=== PATIENT | male | born 1965 | race Caucasian/White ===

== ENCOUNTER 2020-03-09 14:35 | Inpatient (IN) | payer OTHER, SELFPAY ==
[2020-03-09] VITALS (27 sets, daily range): BP systolic 135–179; BP diastolic 82–111; PULSE 45–94; RESP 10–23; TEMP 36.8; O2SAT 93–99; BMI 23.0
--- NOTE | 2020-03-09 14:45 | XRR_ITS ---
PROCEDURE INFORMATION: Exam: XR Chest, 1 View Exam date and time: 03/09/2020 2:47 PM Age: 54 years old Clinical indication: Chest pain TECHNIQUE: Imaging protocol: XR of the chest Views: 1 view. COMPARISON: No relevant prior studies available. FINDINGS: Lungs: There are pulmonary parenchymal calcifications consistent with remote granulomatous organism exposure. Normal variant azygos lobe. Pleural space: Unremarkable. No pleural effusion. No pneumothorax. Heart/Mediastinum: The heart is upper limits of normal in size. Bones/joints: Unremarkable. XR/XR chest 1V portable [id number] IMPRESSION: No acute findings.
--- NOTE | 2020-03-09 14:45 | ECG_ITS ---
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 Measurements Intervals [place] Rate: 60 P: 52 AK: 166 QRS: 68 QRSD: 93 T: 54 QT: 389 QTc: 389 Interpretive Statements SINUS RHYTHM No previous ECG available for comparison Electronically Signed On 03-10-2020 15:10:53 CDT by Wilmer Aly M.D. [id number] f
[2020-03-09 14:56] LABS: Basophils # 0.1 10^3/uL (0.0-0.1); Basophils % 1.1 %; Eosinophils # 0.3 10^3/uL (0.0-0.8); Eosinophils % 2.2 %; Hemoglobin 16.9 g/dL (11.7-16.6); Lymphocytes % 34.5 %; Mean Corpuscular HGB Conc 33.1 g/dL (30.0-36.0); Mean Corpuscular Hemoglobin 30.6 pg (28.0-34.0); Mean Corpuscular Volume 92.4 fL (80-94); Mean Platelet Volume 11.7 fL (7.4-10.4); Monocytes # 0.8 10^3/uL (0.2-0.9); Monocytes % 6.7 %; Neutrophils # 6.4 10^3/uL (1.8-7.7); Neutrophils % 55.2 %; Nucleated Red Blood Cells % 0 %; Platelet Count 277 10^3/cmm (130-400); Red Blood Count 5.52 10^6/uL (4.1-5.3); Red Cell Distribution Width 12.3 % (12.1-15.1); White Blood Count 11.6 10^3/uL (4.0-10.0)
[2020-03-09] MEDS: famotidine 20 mg/2 mL INJ 40 MG IVP (15:02)
[2020-03-09] MEDS: ondansetron 2 mg/ML SDV 2 mL 4 MG IVP ×2 (15:02→20:59)
[2020-03-09] MEDS: lidocaine 2% viscous 15 ML, aluminum-mag hydrox-simethicon 30 ML, sucralfate oral liq 1 GM PO (15:05)
[2020-03-09 15:14] LABS: Alanine Aminotransferase 11 U/L (0-41); Albumin Level 5.2 g/dL (3.5-5.2); Alkaline Phosphatase 44 IU/L (40-130); Anion Gap 20.4 (5-19); Aspartate Amino Transferase 14 U/L (0-40); Blood Urea Nitrogen 18 mg/dL (6-20); Carbon Dioxide 26 mmol/L (22-29); Chloride 99 mmol/L (98-107); Globulin 1.6 g/dL (1.3-4.6); Glomerular Filtration Rate 77.3 mL/min (90-130); Glucose 90 mg/dL (65-115); Lipase 30 U/L (13-60); Osmolality Calculated 288 mOsm/kg (285-295); Potassium 4.4 mmol/L (3.5-5.1); Sodium 141 mmol/L (136-145); Total Bilirubin 0.6 mg/dL (0.15-1.2); Total Protein 6.8 g/dL (6.6-8.7)
[2020-03-09 15:17] LABS: Troponin(5th) Baseline 6 ng/L (0-15)
[2020-03-09] MEDS: HYDROmorphone 1 mg/mL INJ 1 mL 0.5 MG IVP (15:26)
--- NOTE | 2020-03-09 15:30 | W.ED.CHESTPA ---
HPI - Chest Pain General: Chief Complaint: Chest Pain Stated Complaint: CHEST PAIN Time Seen by Provider: 03/09/20 14:44 History of Present Illness: HPI narrative: This patient is a 54-year-old male presenting with chest pain. He has had several episodes of this chest pain over the past several days. The first started about 3 days ago. These episodes last less than half an hour and are severe. He becomes diaphoretic with them. He has not noticed an association with exertion but has noticed that they seem to happen after he eats. The pain radiates to both arms and in fact he notes that the pain actually starts in his arms before he feels it in his chest. The first time it happened he took a baby aspirin and it went away. It happened a couple more times since then and then this afternoon it started around 1:00 and has not really resolved since then. EMS brought him in and noted heart rate in the 40s on their assessment. His blood pressure was also markedly elevated over 200 systolic. They gave a dose of 0.5 mg of atropine which brought his heart rate up and his blood pressure came down. His pain also resolved at that time. His pain started back up during transport and he was given 2 nitroglycerin tablets without any relief. On my initial evaluation he was still having severe pain. He does have a family history of heart disease at a young age. His father had an VA in his 60s. The patient has never been a smoker. He is relatively physically active at work. He does have a history of high blood pressure and takes lisinopril. He has never been told he had diabetes or high cholesterol. MD complaint: chest pain Onset (ago): day(s) (3, intermittent episodes. Constant since 1 PM today) Timing of current episode: episodic and still present Onset: during rest and after eating Pain location: substernal Pain radiation: right arm and left arm Severity: severe Quality: tightness and aching Relieving factors: nothing Exacerbating factors: nothing Associated symptoms: Reports diaphoresis and syncope (He has not passed out but does feel lightheaded when these episodes occur); Deny abdominal pain, dyspnea, nausea or vomiting Treatment prior to arrival: aspirin and nitroglycerin Review of Systems General: Reports: 10 or more systems reviewed and unremarkable except in HPI and below Const: Reports: diaphoresis Eyes: Denies: change in vision ENMT: Denies: odynophagia Card: Reports: syncope (He has not passed out but does feel lightheaded when these episodes occur) Resp: Denies: dyspnea, productive cough or non-productive cough GI: Denies: abdominal pain, nausea or vomiting : Denies: flank pain Musc: Denies: neck pain or back pain Skin/Breast: Denies: rash Neuro: Denies: headache(s), numbness in extremities or weakness in extremities Vu/Lymph: Denies: easy bruising or easy bleeding PFS ED PFSH: Social History Smoking and tobacco status: never smoked Physical Exam Const: COMMON NORMALS: patient oriented x3, no limitations and alert GENERAL APPEARANCE: cooperative HENMT: HEAD & SCALP: normal to inspection FACE & SINUS: normal facial exam Eye: GENERAL EYE: appearance normal, both eyes and all related structures Neck/C-Spine: COMMON NORMALS: supple, no meningeal signs and no JVD Chest: COMMONS NORMALS: normal inspection of the chest Resp: COMMON NORMALS: normal respiratory effort, No use of accessory muscles and clear to auscultation bilaterally AUSCULTATION: clear to auscultation bilaterally Cardio: COMMON NORMALS: no JVD, regular rate, regular rhythm and No murmurs present (Cardio) RATE: regular rate RHYTHM: regular rhythm GI: COMMON NORMALS: Normal to inspection, nondistended, normoactive bowel sounds present, Soft to palpation and non-tender INSPECTION: Yes normal to inspection AUSCULTATION: Yes normoactive bowel sounds PALPATION: Yes Soft to palpation Back/Pelvis: COMMON NORMALS: thoracic and lumbar spine normal to inspection Extremity: COMMON NORMALS: normal to inspection Neuro: COMMON NORMALS: patient oriented x3, moves all extremities, no focal motor deficits and no sensory deficits noted SENSORIUM/ORIENTATION: Yes alert MENINGEAL SIGNS: Yes no meningeal signs Psych: COMMON NORMALS: mental status grossly normal, cooperative and normal affect Skin: COMMON NORMALS: no rashes or lesions noted and turgor normal GENERAL SKIN EXAM: no rashes or lesions noted and turgor normal Course ED course: Second troponin was elevated with a delta of 36. The patient reported significant improvement in his chest pain but still has a feeling of numbness in his arms. Had some Nitropaste placed given his elevated blood pressure and ongoing symptoms. He will be admitted to the CSU with telemetry. I spoke with Dr. Arevalo who agreed with that plan. Vital Signs: Vital signs: Vital Signs Pulse Rate 56 L 03/09/20 17:29 Respiratory Rate 20 H 03/09/20 17:29 Blood Pressure 174/110 03/09/20 17:29 Pulse Oximetry 98 03/09/20 17:29 MDM - Chest Pain MDM Narrative: Medical decision making narrative: Very concerning clinical symptoms including radiation to both arms, chest pain. Associated symptoms of diaphoresis and lightheadedness. These episodes do not seem to be exertional in nature. He was also noted to have significant bradycardia and hypertension during transport. He has had borderline bradycardia and hypertension in the ED. His initial EKG and troponin were normal. His second EKG shows some slight ST depression in the inferior leads. Second troponin is still pending. His pain is improved but not completely gone. I clinically and very concerned and even if his second troponin comes back without significant elevation I think he might justify admission to the hospital due to his EKG changes and clinical picture. Lab Data: Labs: Lab Results 03/09/20 03/09/20 03/09/20 Range/Units 14:50 14:50 14:50 WBC 11.6 H (4.0-10.0) 10^3/ uL RBC 5.52 H (4.1-5.3) 10^6/u L Hgb 16.9 H (11.7-16.6) g/dL Hct 51.0 (42.0-52.0) % MCV 92.4 (80-94) fL MCH 30.6 (28.0-34.0) pg MCHC 33.1 (30.0-36.0) g/dL RDW 12.3 (12.1-15.1) % Plt Count 277 (130-400) 10^3/c mm MPV 11.7 H (7.4-10.4) fL Neut % (Auto) 55.2 % Lymph % (Auto) 34.5 % [place] % (Auto) 6.7 % Eos % (Auto) 2.2 % Baso % (Auto) 1.1 % Neut # (Auto) 6.4 (1.8-7.7) 10^3/u L Lymph # (Auto) 4.0 (0.8-4.8) 10^3/u L [place] # (Auto) 0.8 (0.2-0.9) 10^3/u L Eos # (Auto) 0.3 (0.0-0.8) 10^3/u L Baso # (Auto) 0.1 (0.0-0.1) 10^3/u L Nucleated RBC % (a uto) 0 % Nucleated RBCs # 0.0 /100WBC Sodium 141 (136-145) mmol/L Potassium 4.4 (3.5-5.1) mmol/L Chloride 99 (98-107) mmol/L Carbon Dioxide 26 (22-29) mmol/L Anion Gap 20.4 H (5-19) BUN 18 (6-20) mg/dL Creatinine 1.0 (0.7-1.2) mg/dL GFR Calculation 77.3 L (90-130) mL/min Glucose 90 (65-115) mg/dL Calculated Osmolal ity 288 (285-295) mOsm/k g Calcium 10.0 (8.5-10.5) mg/dL Total Bilirubin 0.6 (0.15-1.2) mg/dL AST 14 (0-40) U/L ALT 11 (0-41) U/L Alkaline Phosphata se 44 (40-130) IU/L Troponin T Baselin e 6 (0-15) ng/L Troponin T 120 Min [place] (0-15) ng/L Delta Troponin T (0-10) ABS# Total Protein 6.8 (6.6-8.7) g/dL Albumin 5.2 (3.5-5.2) g/dL Globulin 1.6 (1.3-4.6) g/dL Lipase 30 (13-60) U/L 03/09/20 Range/Units 16:51 WBC (4.0-10.0) 10^3/ uL RBC (4.1-5.3) 10^6/u L Hgb (11.7-16.6) g/dL Hct (42.0-52.0) % MCV (80-94) fL MCH (28.0-34.0) pg MCHC (30.0-36.0) g/dL RDW (12.1-15.1) % Plt Count (130-400) 10^3/c mm MPV (7.4-10.4) fL Neut % (Auto) % Lymph % (Auto) % [place] % (Auto) % Eos % (Auto) % Baso % (Auto) % Neut # (Auto) (1.8-7.7) 10^3/u L Lymph # (Auto) (0.8-4.8) 10^3/u L [place] # (Auto) (0.2-0.9) 10^3/u L Eos # (Auto) (0.0-0.8) 10^3/u L Baso # (Auto) (0.0-0.1) 10^3/u L Nucleated RBC % (a uto) % Nucleated RBCs # /100WBC Sodium (136-145) mmol/L Potassium (3.5-5.1) mmol/L Chloride (98-107) mmol/L Carbon Dioxide (22-29) mmol/L Anion Gap (5-19) BUN (6-20) mg/dL Creatinine (0.7-1.2) mg/dL GFR Calculation (90-130) mL/min Glucose (65-115) mg/dL Calculated Osmolal ity (285-295) mOsm/k g Calcium (8.5-10.5) mg/dL Total Bilirubin (0.15-1.2) mg/dL AST (0-40) U/L ALT (0-41) U/L Alkaline Phosphata se (40-130) IU/L Troponin T Baselin e (0-15) ng/L Troponin T 120 Min [place] 41.88 H (0-15) ng/L Delta Troponin T 35.88 H* (0-10) ABS# Total Protein (6.6-8.7) g/dL Albumin (3.5-5.2) g/dL Globulin (1.3-4.6) g/dL Lipase (13-60) U/L EKG Data^: EKG 1: EKG interpretation date: 03/09/20 EKG interpretation time: 15:04 Interpretation: Normal sinus rhythm at 60. Normal intervals normal axis. No ST segment elevation or depression. EKG 2: EKG interpretation date: 03/09/20 EKG interpretation time: 16:34 Interpretation: Sinus bradycardia with a rate of 56. Normal VA interval of 163. QRS is 106 compared to 93 on the prior EKG. QTc is 411 compared to 389 on the prior EKG. There is now some ST depression in 2, 3, aVF, V6. There may be a trace of J-point elevation in V2 and V3. Discharge Plan Discharge Patient Disposition: Admitted As Inpatient Clinical Impression: Chest pain Qualifiers: Chest pain type: unspecified Qualified Code(s): R07.9 - Chest pain, unspecified Condition: Stable Referrals: Ish Johnson MD [Primary Care Provider] - Coding Level of Care Code ED Metal Melter for Chg Fwd Exam Comprehensive
--- NOTE | 2020-03-09 16:28 | PC.NURSE ---
EKG done at 1425 and shown to ER doctor
--- NOTE | 2020-03-09 16:45 | ECG_ITS ---
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 Measurements Intervals [place] Rate: 56 P: 48 AL: 163 QRS: 70 QRSD: 106 T: 50 QT: 419 QTc: 406 Interpretive Statements SINUS BRADYCARDIA MODERATE ST DEPRESSION [0.05+ mV ST DEPRESSION] ST elevation in lead V1 consider septal ischemia Compared to ECG 03/09/2020 15:01:36 ST (T wave) deviation now present Sinus rhythm no longer present Electronically Signed On 03-10-2020 15:14:11 CDT by Wilmer Aly M.D. [id number]
[2020-03-09 17:20] LABS: Troponin 5 2HR 41.88 ng/L (0-15)
[2020-03-09 17:23] LABS: Troponin 5 2HR Delta 35.88 ABS# (0-10)
[2020-03-09] MEDS: nitroglycerin 1 gm/inch oint Pkt 1 INCH TOPICAL (17:31)
--- NOTE | 2020-03-09 18:17 | P.HP_ITS ---
Providers/Chief Complaint Admitting Physician: Alban Burr MD Primary Care Provider: Ish Johnson MD Chief Complaint: CHEST PAIN History of Present Illness Glen Foy is a 54 year old male with a past medical history of hypertension who presents to [facility] due to a 3-day history of chest pain. Patient states that 3 days ago he started to develop severe s ubsternal chest pain, radiating down both arms, radiating up to the neck, associated lightheadedness, dizziness, shortness of breath, diaphoresis, not associate with exertion, pain persisted over the next few days, becoming much more frequent, much more intense. Patient states that this afternoon, he had a severe episode of substernal chest pain, it was quite prolonged, he was quite afraid she presented to [facility] for further evaluation. He said that during the episode of chest pain his blood pressure the 200s over 110s. Patient has a family history of CAD in his father. No history of diabetes. No history of hyperlipidemia, does have a history of hypertension, but patient states his blood pressures well controlled. He has regular appointments with his primary care provider. 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 But does states that he has been having generalized weakness for the last few months. Review of Systems Const: Denies: fever(s), chills, fatigue or malaise Eyes: Denies: change in vision or blurry vision ENMT: Denies: nasal congestion Card: Reports: chest pain Resp: Reports: dyspnea; Denies: productive cough, non-productive cough or wheezing GI: Denies: abdominal pain, nausea, vomiting, hematemesis, diarrhea, constipation, hematochezia or melena : Denies: flank pain, difficulty urinating, dysuria or urinary frequency Musc: Denies: neck pain or back pain Skin/Breast: Denies: rash Neuro: Denies: headache(s), dizziness or vertigo Psych: Denies: anxiety or depression Endo: Denies: polyuria or polydipsia Medications/Allergies Home Medications Medication Instructions Recorded Confirmed Last Taken Type All Day Energy Greens See Rx Instructions .ROUTE .COMPLEX 03/09/20 03/09/20 03/09/20 History Cesilia Red Powder See Rx Instructions .ROUTE .COMPLEX 03/09/20 03/09/20 03/09/20 History aspirin [Aspir-81] 81 mg PO DAILY 03/09/20 03/09/20 03/09/20 History 405 MG hydroxyzine HCl 25 mg PO TID PRN 03/09/20 03/09/20 03/09/20 History lisinopril 10 mg PO DAILY 03/09/20 03/09/20 03/09/20 History omeprazole 20 mg PO DAILY 03/09/20 03/09/20 03/09/20 History Allergies Allergy/AdvReac Type Severity Reaction Status Date / Time No Known Allergies Allergy Unverified 03/09/20 16:32 PFSH Acute PFSH: Medical History (Updated 03/09/20 @ 18:20 by Alban Burr MD) Family history of coronary artery disease Surgical History (Updated 03/09/20 @ 18:20 by Alban Burr MD) History of inguinal hernia repair Social History Smoking and tobacco status: never smoked Vitals/I&O/Wt Last Vital Signs Pulse 56 L 03/09/20 17:29 Resp 20 H 03/09/20 17:29 BP 174/110 03/09/20 17:29 Pulse Ox 98 03/09/20 17:29 Weight last 48 hrs Weight 74.843 kg Physical Exam Const: COMMON NORMALS: no acute distress and patient oriented x3 GENERAL APPEARANCE: cooperative and comfortable HENMT: COMMON NORMALS: normocephalic HEAD & SCALP: normocephalic Eye: COMMON NORMALS: Equal, round and reactive pupils present and EOMs intact bilaterally GENERAL EYE: appearance normal, both eyes and all related structures PUPIL: Yes Equal, round and reactive pupils present Neck/C-Spine: COMMON NORMALS: full ROM, no lymphadenopathy, no JVD and Thyroid normal THYROID: Thyroid normal Lymph: LYMPHATIC: no lymphadenopathy noted Resp: COMMON NORMALS: normal respiratory effort, No retractions, No use of accessory muscles and clear to auscultation bilaterally AUSCULTATION: clear t o auscultation bilaterally Cardio: COMMON NORMALS: no JVD, regular rate, regular rhythm, S1 normal heart sound present, S2 normal heart sound present, No gallops present (Cardio), No clicks present (Cardio) and No murmurs present (Cardio) RATE: regular rate RHYTHM: regular rhythm HEART SOUNDS: S1 normal heart sound present and S2 normal heart sound present GI: COMMON NORMALS: Normal to inspection, nondistended, normoactive bowel sounds present, Soft to palpation, non-tender and No hepatosplenomegaly present PALPATION: Yes Soft to palpation and Yes No hepatosplenomegaly present Extremity: COMMON NORMALS: normal to inspection, full ROM and no pedal edema Neuro: COMMON NORMALS: patient oriented x3, CN's II-XII intact bilaterally, moves all extremities and no focal motor deficits Psych: COMMON NORMALS: mental status grossly normal, Normal thought process present and cooperative THOUGHT PROCESS: Normal thought process present Data : 03/09/20 14:50 03/09/20 14:50 A&P Assessment and plan (1) Unstable angina: -Chest pain history sounds truly cardiac in nature -Has family history of CAD -History of hypertension -No other significant risk factors, non-smoker -EKG shows ST depressions in inferior leads, elevated troponins with positive delta -Currently still having chest pain Plan -Admit to CSU -Aspirin, statin, beta-dahlia, therapeutic Lovenox -We will start patient on nitro drip -Serial EKGs, serial troponins, monitor telemetry -We will order cardiac echocardiogram -Monitor for chest pain -We will consider consulting cardiology based on results Status: Acute (2) HTN (hypertension) with goal to be determined: Status: Acute (3) NSTEMI (non-ST elevated myocardial infarction): Status: Acute Attestations Medical Necessity Statement*: Patient requires hospitalization for unstable angina, NSTEMI, inpatient, greater than 2 minutes Coding Level of Care Code Acute Mica Spreader for [facility] Diagnoses Unstable angina I20.0 HTN (hypertension) with goal to be determined I10 NSTEMI (non-ST elevated myocardial infarction) I21.4
[2020-03-09 19:38] LABS: Chol HDL Ratio 4.43 mg/dL (1.0-5.00); Cholesterol 195 mg/dL (0-200); HDL Cholesterol 44 mg/dL (60-100); LDL Cholesterol Calculated 108 mg/dL (50-129); LDL HDL Ratio 2.45 RATIO (0.00-3.22); Triglycerides 213 mg/dL (0-150)
[2020-03-09] MEDS: hyDRALAzine 20 mg/mL INJ 1 mL 10 MG IVP (19:38)
[2020-03-09 19:39] LABS: NT Pro B Type Natriuretic Pept 42 pg/mL (0-125)
[2020-03-09] MEDS: aspirin 325 mg Tablet PO (19:44)
[2020-03-09] MEDS: enoxaparin 80 mg/0.8 mL Syringe 70 MG SUBCUT (19:44)
--- NOTE | 2020-03-09 19:47 | PC.NURSE ---
Dr. Venegas called reguarding coreg. Patient heartrate was 45bpm and blood pressure was 179/111. Was ordered to give 10mg of hydralizine once IVP and hold this dose of coreg. Ordered to give hydralizine and if patient remains hypertensive to start nitro drip. Will continue to monitor.
--- NOTE | 2020-03-09 19:55 | ECG_ITS ---
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 Measurements Intervals [place] Rate: 56 P: 38 CT: 154 QRS: 57 QRSD: 105 T: 54 QT: 422 QTc: 409 Interpretive Statements SINUS BRADYCARDIA WITH SINUS ARRHYTHMIA INCOMPLETE RIGHT BUNDLE BRANCH BLOCK [90+ ms QRS DURATION, TERMINAL R IN V1/V2, 40+ ms S IN I/aVL/V4/V5/V6] ST ELEVATION, CONSIDER SEPTAL INJURY [MARKED ST ELEVATION W/O NORMALLY INFLECTED T WAVE IN V1/V2] ACUTE UT Compared to ECG 03/09/2020 16:33:11 Incomplete right bundle-branch block now present ST (T wave) deviation still present Electronically Signed On 03-10-2020 15:12:22 CDT by Wilmer Aly M.D. [id number]
[2020-03-09] MEDS: nitroglycerin drip 50 MG/250 ML PREMIX IV (19:56)
--- NOTE | 2020-03-09 19:57 | PC.NURSE ---
Patient current blood pressure `150/96 chest pain [address] notified. heart rate 64. Orders recieved to start nitro drip at this time and get a EKG.
--- NOTE | 2020-03-09 20:45 | ECG_ITS ---
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 Measurements Intervals [place] Rate: 54 P: 35 LA: 153 QRS: 51 QRSD: 102 T: 51 QT: 414 QTc: 394 Interpretive Statements SINUS BRADYCARDIA WITH SINUS ARRHYTHMIA INCOMPLETE RIGHT BUNDLE BRANCH BLOCK [90+ ms QRS DURATION, TERMINAL R IN V1/V2, 40+ ms S IN I/aVL/V4/V5/V6] Anterior wall [place], probably recent MODERATE ST DEPRESSION [0.05+ mV ST DEPRESSION] Compared to ECG 03/09/2020 20:01:08 No significant changes Electronically Signed On 03-10-2020 15:15:43 CDT by Wilmer Aly M.D. [id number]
--- NOTE | 2020-03-09 20:55 | PC.NURSE ---
Patient having persisent unrelieved chest pain. Dr. Venegas consulted Dr roa after noticing EKG changes and unrelieved pain after nitro drip at 30mcg/hr and hydralizine [address] Roa came in and decided patient needed to go to labour market economist for evaluation. Patient was prepped, 2L nasal cannula was placed per protocol and a second IV 18G to the RAC was placed. Verbal orders recieved at this time from Dr. Roa to give 25mcg of fentyl IVP x1 and could repeat if needed for unrelieved chest pain. Also was told to bump Nitro gtt up to 50mcg NOW for chest pain by Dr. Roa. Patient was also given zofran 4mg for 1 episode of emesis and Dr. roa was notifed. Patient was given plavix at 2124 and consent signed. Patient remains alert and oriented. Report given to kian in labour market economist.
--- NOTE | 2020-03-09 20:58 | PM.CONSULT ---
Providers/Reason For Consult Consulting Physican/Specialty*: Cardiovascular diseases Reason for Consult*: Chest discomfort, myocardial infarction Attending Physician: Alban Burr MD Primary Care Provider: Ish Johnson MD History of Present Illness History of Present Illness Glen Foy is a 54 year old male who has no known history of heart disease. He is apparently been having several episodes of chest discomfort over the last 3 or 4 days. These last less than 30 minutes and have been severe associated with diaphoresis. They are especially bad after he eats. Today at 1300 hrs. he had an episode which would not go away. He came to the emergency room. His blood pressure was greater than 200 systolic. He arrived by ambulance. For some reason the prehospital personnel gave him atropine 0.5 mg. Apparently his heart rate was in the 40s but he was hypertensive and was not symptomatic other than chest pain. Apparently the prehospital personnel gave him 2 nitroglycerin which did not relieve his pain. His first EKG at 1445 hrs. was normal. He is received a large number of medications over time. I do not have the exact timing of these but in all he has received 70 mg of Lovenox, 325 mg of aspirin, 4 mg of morphine, 0.5 mg of Dilaudid, 10 mg of hydralazine, Nitropaste which is been changed over to nitroglycerin drip at 50 mcg/min, Pepcid 40 mg IV, a GI cocktail and 4 mg of Zofran. His second EKG at [address] segment depressions new from the first EKG. The third EKG was at [address] showed clear ST segment elevation in leads V1 and V2. The the fourth was at [address] segment elevation but still ST changes in leads V1 and V2. I was called at about 2030 hrs. His first troponin was 6. The second was 42. When I arrived he is uncomfortable and squirming around in the bed complaining of continued chest pain. I have asked the nurses to give him some fentanyl which is being prepared now. I will also give him some Plavix. He has a history of hypertension but is not a smoker. Review of Systems General: Reports: 10 or more systems reviewed and unremarkable except in HPI and below Meds/Allergies Home Medications and Allergies Home Medications Medication Instructions Recorded Confirmed Last Taken Type All Day Energy Greens See Rx Instructions .ROUTE .COMPLEX 03/09/20 03/09/20 03/09/20 History Cesilia Red Powder See Rx Instructions .ROUTE .COMPLEX 03/09/20 03/09/20 03/09/20 History aspirin [Aspir-81] 81 mg PO DAILY 03/09/20 03/09/20 03/09/20 History 405 MG hydroxyzine HCl 25 mg PO TID PRN 03/09/20 03/09/20 03/09/20 History lisinopril 10 mg PO DAILY 03/09/20 03/09/20 03/09/20 History omeprazole 20 mg PO DAILY 03/09/20 03/09/20 03/09/20 History Allergies Allergy/AdvReac Type Severity Reaction Status Date / Time No Known Allergies Allergy Unverified 03/09/20 16:32 Current Medications Current Medications Generic Name Dose Route Start Last Admin Trade Name Freq PRN Reason Stop Dose Admin Carvedilol 3.125 mg 03/09/20 19:10 03/09/20 19:44 Coreg PO Not Given BID JEFFERY Enoxaparin Sodium 70 mg 03/09/20 19:10 03/09/20 19:44 Lovenox SUBCUT 70 mg Q12H JEFFERY Administration Nitroglycerin/Dextrose 50 mg in 250 mls @ 0 mls/hr 03/09/20 19:10 03/09/20 20:05 Nitroglycerin Drip IV 10 mcg/min .Q0M JEFFERY 3 mls/hr Titration Protocol Per Protocol PFSH Acute PFSH: Medical History (Updated 03/09/20 @ 18:20 by Alban Burr MD) Family history of coronary artery disease Surgical History (Updated 03/09/20 @ 18:20 by Alban Burr MD) History of inguinal hernia repair Social History Smoking and tobacco status: never smoked Vitals/I&O/Wt Last Vital Signs Temp 98.2 F 03/09/20 19:09 Pulse 63 03/09/20 19:10 Resp 17 03/09/20 19:10 BP 150/96 03/09/20 19:10 Pulse Ox 95 03/09/20 19:10 03/09/20 03/09/20 03/09/20 06:59 14:59 22:59 Intake Total 0.225 / 0.225 Balance 0.225 / 0.225 Weight last 48 hrs Weight 165 lb Physical Exam Narrative: EXAM NARRATIVE: GENERAL: He is uncomfortable and somewhat agitated squirming around in the bed HEENT: Exam within normal limits. NECK: Supple without jugular vein distention. The carotid upstroke is normal without bruits. BACK: Exam normal. LUNGS: Clear. HEART: Regular rate and rhythm. ABDOMEN: Benign without organomegaly or tenderness. EXTREMITIES: No edema. NEUROLOGIC: Exam normal. SKIN: Unremarkable. A&P Assessment and plan (1) HTN (hypertension) with goal to be determined: Status: Acute (2) Unstable angina: Status: Acute Additional A&P Information This is a myocardial infarction most likely in the distribution of the LAD given the EKG. This was apparent on the EKG about 1 hour ago. He has been given Lovenox, intravenous nitroglycerin, aspirin and a multitude of other medications. I will give him Plavix and we will perform angiography as soon as possible. Consult Attestations Medical Necessity Statement: Not applicable Coding Level of Care Code New Pt Acute Animal Maintenance Supervisor for Chg Fwd Patient Type New History Comprehensive Exam Comprehensive Medical Decision Making High Complexity Diagnoses HTN (hypertension) with goal to be determined I10 Unstable angina I20.0
[2020-03-09] MEDS: fentaNYL 50 mcg/mL INJ 2mL 25 MCG IVP (21:00)
[2020-03-09] MEDS: clopidogrel 300 mg Tablet 600 MG PO (21:25)
--- NOTE | 2020-03-09 21:27 | XACV_ITS ---
Exam Room: [facility] Gender: Male : 1965 Exam Priority: Routine Procedure(s): Procedure Description: Diagnostic procedure Procedure Description: Left Heart Catheterization Procedure Description: Right Heart Catheterization Diagnostic Cath Status: Emergency Diagnostic Findings Patient with typical angina of on and off and stuttering for 3 to 4 days. Arrived to the emergency room with a normal EKG. Over time the EKG changed suggesting an acute anterior wall SC. Angiography reveals left coronary artery dominance. The left main is normal. The LAD is occluded in the proximal portion passed a diagonal. Circumflex is a large dominant vessel and contains mild diffuse luminal irregularities. The right coronary artery is small and contains a 70% stenosis in the midportion but is a very small nondominant vessel. PCI Status: Emergency PCI LVEF Assessed: Yes PCI Indication: STEMI - Immediate PCI for STEMI Interventional Findings The vessel was difficult to wire. Once the wire was placed the vessel was stented primarily with a good angiographic result. Decision for PCI with Surgical Consult: No PCI for Multi-vessel Disease: No Conclusions Occluded LAD causing an acute anterior wall SC. Left dominant system. 70% mid right coronary artery stenosis. Apical dyskinesis with distal anterior wall hypokinesis. Interventional RX Recommendation: PCI w/o planned CABG Diagnostic RX Recommendation: PCI w/o planned CABG Anticoagulation: Heparin Ventriculography Ejection Fraction: 35.0 % Pressures Phase:Rest LV : 165 mmHg / -3 mmHg / @ 5:07:00 PM 169 mmHg / 25 mmHg / @ 5:08:00 PM Clinical Evaluation EBL: 5mL-10mL Procedural Details Pre-Procedure Time Out. Identified patient by full name and date of as verbalized by the patient/guarantor. Does the consent match the physician's order: Yes. Accurate & Complete Informed Consent: Yes. Inpatient/Outpatient History & Physical on Chart: Yes. If H&P is completed, is and addenduem needed: N/A Emergent; Informed Consent not obtained due to time critical life threat; If yes, is the addendum complete: N/A Emergent; Informed Consent not obtained due to time critical life threat. Visualize and Verify Site with Patient/Guarantor: N/A. Relevant Radiology Images available: N/A Emergent; Informed Consent not obtained due to time critical life threat. Pre-op teaching completed and patient verbalized understanding. The risks, benefits, and alternatives of sedation and/or procedure were discussed by physician. The patient agrees to continue. Procedure started. Correct patient, site and procedure confirmed by cath team. Current diagnosis: STEMI. IV Site on Arrival: 20 gauge in the right anticubital. IV Site on Arrival: 20 gauge in the left anticubital. Oxygen started at 2liters/min via nasal canula. IV Fluids: 0.9% NaCl at KVO. 0 mL infused prior to director of cath lab. right groin was prepped with chloroprep then draped in the usual sterile fashion. right radial was prepped with chloroprep then draped in the usual sterile fashion. Physician notified. Equipment: 5F - Radial. Cardiac Cath Pack. ACIST Manifold Kit Model BT 2000. Heparinized Saline (2 units/mL), 1000 mL bag. Physician arrived. Baseline sample Acquired. HR: 57 BPM. Physician scrubbed in. Immediate Pre-Procedure Time Out. Correct Patient: Yes; Correct Procedure: Yes; Correct Site: Yes; Correct Patient Position: Yes; Correct Supplies: Yes; Dried Flammable Prep: Yes; Blood Products Available: N/A Emergent; Informed Consent not obtained due to time critical life threat;. Lidocaine 1% infiltrated to the right radial. Arterial access obtained. 6 malawian XB 3 guide catheter was inserted over the wire. Watkins guidewire was advanced through the guide catheter to lesion in the prox LAD. Stent inserted to lesion in the prox LAD. Inflation Number : 1 Angela Bosch MAXI 3.0X12 SEBASTIAN -Lot Number# [id number] was prepped and advanced across the Prox LAD. The stent was deployed at 14 CARLIE for 0:45 seconds. Stent balloon out over wire. Wire out. A 6 malawian JR4 catheter in over wire. Catheter out. A 6 malawian Angled Pig catheter in over wire. EDP Sample taken: LV 165/-4,36; HR: 62 BPM; SpO2: 97%. LV gram performed in PAZ @ 10 mL/second for a total of 30 mL. EDP Sample taken: LV 169/25,39; HR: 107 BPM; SpO2: 97%. Pullback taken: LV Off; AO Off; Mean: , Peak to Peak: , SEP: ; HR: 0 BPM; SpO2: 97%. Catheter out. A 6 malawian JR4 catheter in over wire. Multiple views taken of right coronary artery. Catheter out. Physician scrubbed out. TR band placed. Hemostasis obtained. PERRLA. Strong, equal hand proof technician bilaterally. No VTE prophylaxis required. Contrast type used: Omnipaque 300 mgI/mL, 500 mL bottle. PCI Indication: STEMI. Complications: none. Estimated blood loss: 5mL-10mL. Total IV fluids: 100 mL. Medication's Wasted: Lidocaine 1% = 18 mL. Post-op diagnosis: acute anterior wall mi. Medication's Wasted: Nitro = 49.8 mg. Medication's Wasted: Heparin = 4000 units. Medication's Wasted: Other = fentanayl 75 mcg. Procedure completed. Patient transferred by bed to 1st floor. Vital chart was stopped. Site: Right Radial artery Sheath Size: 6 Fr Hemostasis Success: Unsuccessful Procedure Medications Start: 9:47 PM Stop: 9:47 PM Medication: Verapamil Amount: 5 mg Route: I.A. Start: 9:47 PM Stop: 9:47 PM Medication: Nitrogylcerin Amount: 200 mcg Route: I.A. Start: 9:49 PM Stop: 9:49 PM Medication: Versed Amount: 1 mg Route: I.V. Start: 9:49 PM Stop: 9:49 PM Medication: Fentanyl Amount: 25 mcg Route: I.V. Start: 9:59 PM Stop: 9:59 PM Medication: Versed Amount: 1 mg Route: I.V. Start: 10:00 PM Stop: 10:00 PM Medication: Heparin Amount: 2000 units Route: I.V. I, the attending physician, have reviewed and verified all procedure medications. Yes, all medications given per verbal order Report Signatures Finalized by:Dr. Wilmer Aly MD on 03/09/2020 10:32:25 PM
--- NOTE | 2020-03-09 21:35 | PC.NURSE ---
Patient off the floor to rn lab for procedure.
--- NOTE | 2020-03-09 21:53 | PC.NURSE ---
Patient requested I call his mother Linette Foy. Confirmed phone number and called patients mother. Left a message for her. Notified patient I was unable to get ahold of her and we would call her once he returned from cath laboratory technician. Patient verbalized understanding.
[2020-03-09 22:01] LABS: Troponin 5 6HR 168.2 ng/L (0-15); Troponin 5 6HR Delta 162.2 ng/L (0-12)
[2020-03-09 22:01] LABS: Amphetamines Screen Urine Negative (Negative); Barbiturates Screen Urine Negative (Negative); Benzodiazepines Screen Urine Negative (Negative); Cocaine Screen Urine Negative (Negative); Opiate Screen Urine Negative (Negative); PCP Screen Urine Negative (Negative); THC Screen Urine Positive (Negative)
--- NOTE | 2020-03-09 22:04 | PM.EVENT ---
Event Note Event Note: Patient was evaluated for persistent chest pain Patient describes chest pain as substernal, achy in nature, 06/22, I increase his nitro glycerin infusion rate but he kept having persistent chest pain, EKG was showing new T wave inversions from his prior EKG Dr. Aly was consulted for persistent chest pain At the time of my evaluation heart rate was fluctuating between 56-64, visible ST depression 0.5 mm V2 to V4 with T wave inversion in V2 V3, systolic blood pressure ranging between 140s to 160s
[2020-03-09] MEDS: sodium chloride 0.9% 1,000 ML 100 ML IV (22:35)
--- NOTE | 2020-03-09 22:38 | PC.NURSE ---
Patient i back from lab nurse. Patient is awake and oriented. No hematoma. TR band to R wrist.
[2020-03-09] MEDS: hyDROXYzine 25 mg Capsule PO (22:52)
[2020-03-09 22:54] LABS: Estmated Average Glucose 105; Hemoglobin A1C 5.3 % (4.0-6.0)
--- NOTE | 2020-03-09 23:28 | PC.NURSE ---
Patients requested I call his sister shala and update her. She was called and put on speaker so patient could speak with her and updated her on patient. Will continue to monitor.
[2020-03-10] VITALS (36 sets, daily range): BP systolic 106–160; BP diastolic 66–103; PULSE 55–105; RESP 6–29; TEMP 36.9–37.2; O2SAT 91–97
--- NOTE | 2020-03-10 01:42 | PC.NURSE ---
Patient had been educated about calling for help when getting up and staff had explained to the patient not to push or pull with the Right arm. Patients TR band was almost off. Patient stated that his oxygen tubing got tangled in the TR band and tugged on it and it began to bleed. Patient devloped a small hematoma. attempted to call Dr. Aly at [phone] and Left a voicemail. Will attempt again. 4mls of air added to TR band bleeding stopped.
--- NOTE | 2020-03-10 02:11 | PC.NURSE ---
Dr. Aly notifed of hematoma 0.6x 1.2 and of nausea and that chest pain was a 3/10. Also stated tHAT THE HEMAtoma was softening. Orders recieved to give zofran IVP 4mg and to continue to montior patient at this time.
[2020-03-10] MEDS: ondansetron 2 mg/ML SDV 2 mL 4 MG IVP (02:29)
--- NOTE | 2020-03-10 03:03 | PC.NURSE ---
Rounded on patient and he is resting with eyes. Vitals are stable at this time. TR band is in place with 4mls of air. small hematoma is present below the band and is softening. Will continue to monitor.
[2020-03-10 04:56] LABS: Basophils % 0.3 %; Hematocrit 46.9 % (42.0-52.0); Lymphocytes # 1.3 10^3/uL (0.8-4.8); Lymphocytes % 8.4 %; Mean Corpuscular HGB Conc 34.1 g/dL (30.0-36.0); Mean Corpuscular Hemoglobin 30.8 pg (28.0-34.0); Mean Corpuscular Volume 90.2 fL (80-94); Mean Platelet Volume 11.6 fL (7.4-10.4); Monocytes # 0.7 10^3/uL (0.2-0.9); Monocytes % 4.8 %; Neutrophils # 12.9 10^3/uL (1.8-7.7); Neutrophils % 86.2 %; Nucleated Red Blood Cells % 0 %; Platelet Count 215 10^3/cmm (130-400); Red Cell Distribution Width 12.1 % (12.1-15.1); White Blood Count 14.9 10^3/uL (4.0-10.0)
[2020-03-10 05:19] LABS: Alanine Aminotransferase 33 U/L (0-41); Albumin Level 4.4 g/dL (3.5-5.2); Alkaline Phosphatase 40 IU/L (40-130); Anion Gap 19.7 (5-19); Aspartate Amino Transferase 149 U/L (0-40); Blood Urea Nitrogen 15 mg/dL (6-20); Calcium 9.3 mg/dL (8.5-10.5); Carbon Dioxide 23 mmol/L (22-29); Chloride 101 mmol/L (98-107); Globulin 2.4 g/dL (1.3-4.6); Glucose 110 mg/dL (65-115); Magnesium 1.7 mg/dL (1.7-2.3); Osmolality Calculated 287 mOsm/kg (285-295); Phosphorus 3.7 mg/dL (2.5-4.5); Potassium 3.7 mmol/L (3.5-5.1); Sodium 140 mmol/L (136-145); Total Bilirubin 0.8 mg/dL (0.15-1.2); Total Protein 6.8 g/dL (6.6-8.7)
--- NOTE | 2020-03-10 05:29 | PC.NURSE ---
End of Shift: Patient TR band off at 0430. Small hematoma still noted. Patient is resting at this time. Patient has complained of nausea and when I enter the room patient is asleep. Patient dressing is clean dry and intact at this at this time. Patient is alert and oriented.
--- NOTE | 2020-03-10 07:16 | PM.PN ---
Subjective Subjective: Interval history: After the cardiac catheterization procedure last evening, Zak continued to have intermittent episodes of chest discomfort. He inadvertently pulled the TR band off his right wrist causing a small hematoma. I received several calls overnight. The bleeding was stopped when the TR band was replaced. Patient also had intermittent episodes of nausea and diaphoresis. That finally settled down overnight. This morning he is looking on his cell phone. His chest pain is gone. He feels much better. No more nausea and vomiting. Vitals/I&O/Wt Last Vital Signs Temp 98.2 F 03/09/20 23:08 Pulse 58 L 03/10/20 07:00 Resp 16 03/10/20 07:00 BP 126/78 03/10/20 07:00 Pulse Ox 95 03/10/20 07:00 03/09/20 03/10/20 03/10/20 22:59 06:59 14:59 Intake Total 0.225 / 0.225 200 / 200.225 Output Total 200 / 200 425 / 625 Balance -199.775 / -199.775 -225 / -424.775 Weight last 48 hrs Weight 165 lb Physical Exam Narrative: EXAM NARRATIVE: GENERAL: In general he looks and feels well this morning HEENT: Exam within normal limits. NECK: Supple without jugular vein distention. The carotid upstroke is normal without bruits. BACK: Exam normal. LUNGS: Clear. HEART: Regular rate and rhythm. ABDOMEN: Benign without organomegaly or tenderness. EXTREMITIES: No edema. The right radial artery entry site contains a small bruise. There is a pulse 1+. No hematoma or other vascular abnormality. NEUROLOGIC: Exam normal. SKIN: Unremarkable. Data : 03/10/20 04:15 03/10/20 04:15 Other data: His 6-hour troponin was 168 after the 2-hour was 41. A&P Assessment and plan (1) Acute anterior wall [place]: Status: Acute (2) Status post insertion of drug-eluting stent into left anterior descending artery: Status: Acute (3) HTN (hypertension) with goal to be determined: Status: Acute Additional A&P Information He is much improved this morning. He is currently on aspirin, Plavix, statin, CAYLA inhibitor and a beta-dahlia. These medications should be sufficient. He should be up and around today to make sure that everything is okay. If he is well we will discharge him in the morning. 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
[2020-03-10] MEDS: aspirin 81 mg EC Tablet PO (09:22)
[2020-03-10] MEDS: clopidogrel 75 mg Tablet PO (09:22)
[2020-03-10] MEDS: atorvastatin 40 mg Tablet PO (09:22)
[2020-03-10] MEDS: pantoprazole DR 40 mg Tablet PO (09:23)
[2020-03-10] MEDS: lisinopril 10 mg Tablet 20 MG PO (09:23)
[2020-03-10] MEDS: carvedilol 3.125 mg Tablet PO ×2 (09:23→17:59)
--- NOTE | 2020-03-10 12:53 | PM.PN ---
Subjective Subjective: Interval history: Yesterday evening patient continued to have chest pain, status post stenting to LAD, states that he feels much better this morning, still a bit flushed, but doing better, no lightheadedness, no dizziness, he has a hematoma at his cath site in his arm, but improving Vitals/I&O/Wt Last Vital Signs Temp 98.4 F 03/10/20 12:00 Pulse 67 03/10/20 12:00 Resp 23 H 03/10/20 12:00 BP 109/76 03/10/20 12:00 Pulse Ox 93 03/10/20 12:00 03/09/20 03/10/20 03/10/20 22:59 06:59 14:59 Intake Total 0.225 / 0.225 200 / 782.804 7796.667 / 1126.667 Output Total 200 / 200 425 / 625 450 / 450 Balance -199.775 / -199.775 -225 / -424.775 676.667 / 676.667 Weight last 48 hrs Weight 74.843 kg Physical Exam Const: COMMON NORMALS: no acute distress and patient oriented x3 HENMT: COMMON NORMALS: normocephalic HEAD & SCALP: normocephalic Neck/C-Spine: COMMON NORMALS: no JVD Resp: COMMON NORMALS: normal respiratory effort, No retractions, No use of accessory muscles and clear to auscultation bilaterally AUSCULTATION: clear to auscultation bilaterally Cardio: COMMON NORMALS: no JVD, regular rate, regular rhythm, S1 normal heart sound present and S2 normal heart sound present RATE: regular rate RHYTHM: regular rhythm HEART SOUNDS: S1 normal heart sound present and S2 normal heart sound present GI: COMMON NORMALS: Normal to inspection, nondistended, normoactive bowel sounds present, Soft to palpation, non-tender, No hepatosplenomegaly present, no masses and no bruits PALPATION: Yes Soft to palpation and Yes No hepatosplenomegaly present Extremity: COMMON NORMALS: capillary refill normal, no clubbing, cyanosis or edema, no calf tenderness and no pedal edema Neuro: COMMON NORMALS: patient oriented x3 Psych: COMMON NORMALS: mental status grossly normal Skin: NARRATIVE SKIN EXAM: Radial artery skin overlying, mild hematoma, right arm Data : 03/10/20 04:15 03/10/20 04:15 A&P Assessment and plan (1) Acute anterior wall [place]: -Status post drug-eluting stent to LAD Plan: -Admit to CSU -Monitor for recurrent chest pain -Aspirin, statin,, Plavix beta-dahlia, lisinopril -Nitro for chest pain - likely discharge in next 24 hours -SCDs for DVT prophylaxis -Protonix for GI prophylaxis Status: Acute (2) Status post insertion of drug-eluting stent into left anterior descending artery: Status: Acute (3) HTN (hypertension) with goal to be determined: Status: Acute (4) Chest pain: Status: Acute Qualifiers: Chest pain type: unspecified Qualified Code(s): R07.9 - Chest pain, unspecified (5) Unstable angina: Status: Inactive (6) NSTEMI (non-ST elevated myocardial infarction): Status: Inactive Attestations Medical Necessity Statement*: Patient requires continued hospitalization for chest pain, status post cardiac catheterization, drug-eluting stent to LAD Coding Level of Care Code Acute Furnace Room Supervisor for Edith Mckeon Diagnoses Acute anterior wall [place] I21.09 Status post insertion of drug-eluting stent into left anterior descending artery Z95.5 HTN (hypertension) with goal to be determined I10 Chest pain R07.9 Chest pain type: unspecified Unstable angina I20.0 NSTEMI (non-ST elevated myocardial infarction) I21.4
[2020-03-10] MEDS: acetaminophen 325 mg Tablet 650 MG PO (15:01)
--- NOTE | 2020-03-10 15:50 | PC.NURSE ---
PATIENT AMBULATED LENGTH OF THE CSU HALLWAY X2. NO COMPLAINTS, CHEST PAIN OR SHORTNESS OF BREATH NOTED.
--- NOTE | 2020-03-10 19:16 | PC.NURSE ---
Rounding: Patient is resting in bed watching tv. Patient denies any chest pain at this time. Remains alert and oriented. Call light within reach and bed in low position. Small soft hematoma present on R wrist. Will continue to monitor.
[2020-03-11 03:00] VITALS: BP 104/69; PULSE 55; RESP 16; TEMP 36.9; O2SAT 95
[2020-03-11 05:01] LABS: Basophils % 0.4 %; Eosinophils # 0.1 10^3/uL (0.0-0.8); Eosinophils % 0.5 %; Hematocrit 45.5 % (42.0-52.0); Hemoglobin 15.4 g/dL (11.7-16.6); Lymphocytes % 19.1 %; Mean Corpuscular HGB Conc 33.8 g/dL (30.0-36.0); Mean Corpuscular Hemoglobin 30.9 pg (28.0-34.0); Mean Corpuscular Volume 91.4 fL (80-94); Mean Platelet Volume 11.3 fL (7.4-10.4); Monocytes # 0.9 10^3/uL (0.2-0.9); Monocytes % 8.3 %; Neutrophils # 7.5 10^3/uL (1.8-7.7); Neutrophils % 71.5 %; Nucleated Red Blood Cells % 0 %; Platelet Count 194 10^3/cmm (130-400); Red Blood Count 4.98 10^6/uL (4.1-5.3); Red Cell Distribution Width 12.3 % (12.1-15.1); White Blood Count 10.4 10^3/uL (4.0-10.0)
[2020-03-11 05:15] LABS: Alanine Aminotransferase 36 U/L (0-41); Albumin Level 4.2 g/dL (3.5-5.2); Alkaline Phosphatase 37 IU/L (40-130); Aspartate Amino Transferase 107 U/L (0-40); Blood Urea Nitrogen 17 mg/dL (6-20); Calcium 9.4 mg/dL (8.5-10.5); Carbon Dioxide 25 mmol/L (22-29); Chloride 105 mmol/L (98-107); Globulin 1.9 g/dL (1.3-4.6); Glucose 98 mg/dL (65-115); Magnesium 1.9 mg/dL (1.7-2.3); Osmolality Calculated 288 mOsm/kg (285-295); Phosphorus 2.8 mg/dL (2.5-4.5); Sodium 141 mmol/L (136-145); Total Bilirubin 1.1 mg/dL (0.15-1.2); Total Protein 6.1 g/dL (6.6-8.7)
--- NOTE | 2020-03-11 05:25 | PC.NURSE ---
End of shift: Patient has rested well this shift. Patient has had a uneventful shift. Patient has had no complaints of pain or nausea. Patients hematoma on R wrist remains the same size. no complaints of pain at the site. Vitals are stable. Call light is within reach, bed in low position and side rail up x2. Will continue to monitor.
[2020-03-11 05:34] LABS: Troponin T (5th) Once 2285 ng/L (0-15)
--- NOTE | 2020-03-11 06:52 | P.PN_ITS ---
Subjective Subjective: Interval history: Zak has had a relatively uneventful night. He states that his body occasionally feels hot and then cold. No chest pain. Medications: Reviewed: Yes Vitals/I&O/Wt Last Vital Signs Temp 98.4 F 03/11/20 03:00 Pulse 55 L 03/11/20 03:00 Resp 16 03/11/20 03:00 BP 104/69 03/11/20 03:00 Pulse Ox 95 03/11/20 03:00 03/10/20 03/10/20 03/11/20 14:59 22:59 06:59 Intake Total 1126.667 / 1126.667 594 / 1720.667 300 / 2020.667 Output Total 450 / 450 Balance 676.667 / 676.667 594 / 1270.667 300 / 1570.667 Weight last 48 hrs Weight 165 lb Physical Exam Narrative: EXAM NARRATIVE: GENERAL: In general he looks and feels well HEENT: Exam within normal limits. NECK: Supple without jugular vein distention. The carotid upstroke is normal without bruits. BACK: Exam normal. LUNGS: Clear. HEART: Regular rate and rhythm. ABDOMEN: Benign without organomegaly or tenderness. EXTREMITIES: No edema. There is a small bruise at the site of the entry on the right radial artery area. This small amount of bleeding occurred as a result of the TR band being inadvertently pulled off prematurely. NEUROLOGIC: Exam normal. SKIN: Unremarkable. Data : 03/11/20 04:38 03/11/20 04:38 Other data: His troponin after the event went up to 2285. A&P Assessment and plan (1) Acute anterior wall [place]: Status: Acute (2) Status post insertion of drug-eluting stent into left anterior descending artery: Status: Acute (3) HTN (hypertension) with goal to be determined: Status: Acute Additional A&P Information Patient may be discharged home today. 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 He works Wednesday and Wednesday nights. He should stay off work until a week from this coming Wednesday 9 days from now. He may go back to work next Wednesday evening. He should see our nurse practitioner in 7 to 10 days for right radial artery check and chemistry panel. He should then see 1 of the cardiologists in 3 months. He should go home on low-dose aspirin, lisinopril 20 mg a day, carvedilol 3.125 mg twice a day, Plavix 75 mg a day and atorvastatin 40 mg a day. His other home medications may be continued as prescribed. I have talked to him extensively about activity telling him to avoid strenuous activity and extremes of heat and humidity for the next 9 days. 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 No li fting over 5 pounds for 2 days with the right arm. 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
[2020-03-11 06:56] VITALS: BP 119/72; PULSE 52; RESP 14; TEMP 36.6; O2SAT 93
[2020-03-11] MEDS: aspirin 81 mg EC Tablet PO (08:28)
[2020-03-11] MEDS: lisinopril 10 mg Tablet 20 MG PO (08:28)
[2020-03-11] MEDS: clopidogrel 75 mg Tablet PO (08:28)
[2020-03-11] MEDS: pantoprazole DR 40 mg Tablet PO (08:29)
[2020-03-11] MEDS: carvedilol 3.125 mg Tablet PO (08:29)
[2020-03-11] MEDS: atorvastatin 40 mg Tablet PO (08:29)
[2020-03-11 08:32] VITALS: BP 118/71; PULSE 54; RESP 17; O2SAT 95
--- NOTE | 2020-03-11 10:01 | PC.CHAP ---
Pastoral Care Encounter/Spiritual Assessment Type of Contact [] Declined rn neonatal icu visit [] Patient/Family/Request visit [] Outpatient visit [] Follow-up visit [] Physician referral [] Code/Alert [x] Routine visit [] Staff referral [] Actively dying [] Patient sleeping [] Family support [] [] Out of room [] Palliative care [] [] Receiving care in room [] Pre-surgical visit [] Trauma [] Long length of stay [] ICU visit [] Other: Relational/Emotional Strength [] Patient feels connected with others/family/visitors/staff [] Distress [] Loneliness/isolation [] Abandonment Spirituality of Patient [] Person of Maggie [] Attends Congregational of their Maggie [] Believes in Prayer [] Reads Bible or Worship materials [] There are Spiritual issues to be addressed [employer] Interventions [x] Prayer [x] Active listening [x] Non-anxious presence [x] Spiritual/emotional support [] Crisis/trauma care [] Spiritual counseling [] Bereavement support [] Provided bereavement packet [] Provided Bible/devotional materials [] Provided toy/stuffed animal, coloring book to patient or family member [] Provided Communion [] Anointing/[place] [] Salvation [x] Completed spiritual assessment [] Other: Impact on Illness or Injury [] Angry [] Fearful [] Anxious [] Often cries [] Exhaustion [] Unable to work [] Unable to attend taoist [] Unable to walk/stand [] Unable to read [] Unable to drive [] Unable to eat/drink [] Unable to sleep [] Unable to be with family [] Patient intubated [] Other: Summary Patient had surgery.. feel stronger. Time spent with patient 15 min
--- NOTE | 2020-03-11 11:51 | PM.DCS ---
Discharge Providers Date of Admission: 03/09/20 17:36 Date of Discharge: March 11, 2020 Attending Provider at Admission: Albna Burr MD Attending Provider at Discharge: Ector Howell MD Primary Care Provider: Ish Johnson MD Diagnoses at Discharge Discharge Diagnosis (1) Acute anterior wall ID: Status: Acute (2) Status post insertion of drug-eluting stent into left anterior descending artery: Status: Acute (3) HTN (hypertension) with goal to be determined: Status: Acute Reason for Visit Reason for Visit: CHEST PAIN Hospital Course Discharge Summary: Glen Foy is a 54 year old male with a past medical history of hypertension who presents to [facility] due to a 3-day history of chest pain. Patient states that 3 days ago he started to develop severe substernal chest pain, radiating down both arms, radiating up to the neck, associated lightheadedness, dizziness, shortness of breath, diaphoresis, not associate with exertion, pain persisted over the next few days, becoming much more frequent, much more intense. Patient states that this afternoon, he had a severe episode of substernal chest pain, it was quite prolonged, he was quite afraid he presented to [facility] for further evaluation on March 09, 2020. His EKG was consistent with STEMI for which he underwent cardiac catheterization which showed occluded LAD, left dominant system, 70% mid RCA, apical diet dyskinesis with distal anterior wall hypokinesia. He underwent PCI to proximal LAD. He tolerated the procedure well. His hospital stay was complicated by occasional chest pain post cardiac catheterization which eventually resolved. He is been discharged hemodynamically stable condition after optimization of his anginal and cardiac medications with advised to follow-up with cardiology office within next 7 days for BMP and catheterization site monitoring with advised to follow-up with his primary care physician within next 14 days. 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 Routin e Exams 03/09/20 21:27 Completed XR chest 1V filiberto ble [id number] Stat Exams 03/09/20 14:45 Completed Pending at discharge Category Date Time Status Complete Blood Co unt w/Auto AM LABS Lab 03/12/20 04:00 Ordered Comprehensive Met abolic Panel AM LA BS Lab 03/12/20 04:00 Ordered Magnesium AM LABS Lab 03/12/20 04:00 Ordered Phosphorus AM LAB S Lab 03/12/20 04:00 Ordered Labs from last 24 hours 03/11/20 03/11/20 03/11/20 04:38 04:38 04:38 WBC 10.4 H RBC 4.98 Hgb 15.4 Hct 45.5 MCV 91.4 MCH 30.9 MCHC 33.8 RDW 12.3 Plt Count 194 MPV 11.3 H Neut % (Auto) 71.5 Lymph % (Auto) 19.1 Grant % (Auto) 8.3 Eos % (Auto) 0.5 Baso % (Auto) 0.4 Neut # (Auto) 7.5 Lymph # (Auto) 2.0 Grant # (Auto) 0.9 Eos # (Auto) 0.1 Baso # (Auto) 0.0 Nucleated RBC % (a uto) 0 Nucleated RBCs # 0.0 Sodium 141 Potassium 4.0 Chloride 105 Carbon Dioxide 25 Anion Gap 15.0 BUN 17 Creatinine 0.8 GFR Calculation 100.0 Glucose 98 Calculated Osmolal ity 288 Calcium 9.4 Phosphorus 2.8 Magnesium 1.9 Total Bilirubin 1.1 AST 107 H ALT 36 Alkaline Phosphata se 37 L Troponin T Gen 5 n g/L 2285 H* Total Protein 6.1 L Albumin 4.2 Globulin 1.9 Vitals: Last Vital Signs Temp 97.9 F 03/11/20 06:56 Pulse 54 L 03/11/20 08:32 Resp 17 03/11/20 08:32 BP 118/71 03/11/20 08:32 Pulse Ox 95 03/11/20 08:32 Discharge Plan Discharge Patient Disposition: Home, Self-Care Condition: Stable Prescriptions: New atorvastatin 40 mg Tablet 40 mg PO DAILY Qty: 30 RF: 0 clopidogrel 75 mg Tablet 75 mg PO DAILY Qty: 30 RF: 0 carvedilol 3.125 mg Tablet 3.125 mg PO BID Qty: 60 RF: 0 lisinopril 10 mg Tablet 20 mg PO DAILY Qty: 60 RF: 0 Continued All [employer] Greens See Rx Instructions .ROUTE .COMPLEX RF: 0 Aspir-81 81 mg Tablet,Delayed Release (Dr/Ec) 81 mg PO DAILY RF: 0 hydroxyzine HCl 25 mg tablet 25 mg PO TID PRN (Reason: UNKNOWN) RF: 0 omeprazole 20 mg Tablet,Delayed Release (Dr/Ec) 20 mg PO DAILY RF: 0 Cesilia Red Powder See Rx Instructions .ROUTE .COMPLEX RF: 0 Discontinued lisinopril 10 mg tablet 10 mg PO DAILY RF: 0 Discharge Orders: Discharge Order (Routine); Ordered 03/11/20 Ordered By: Ector Howell Referrals: Wilmer Aly MD [Physician] - 4-7 days (You have a cardiology followup at [facility] with CHRISTIANA Abraham on Wednesday, March 19 at 8:30am.) Ish Johnson MD [Primary Care Provider] - 2 weeks (You have a hospital followup with Dr. Johnson at [facility] scheduled on at 2:15pm.) Discharge Diet: Cardiac Discharge Activity: Resume usual activity Patient Instructions: Atorvastatin (By mouth), Carvedilol (By mouth), Clopidogrel (By mouth), Left Heart Catheterization (DC), Heart Healthy Diet (DC), Post Angiogram Home Care Instructions, Post Heart Attack Stoplight Activity Restrictions/Additional Instructions: He should stay off work until a week from this coming Wednesday 9 days from now. He may go back to work next Wednesday evening. He should see our nurse practitioner in 7 to 10 days for right radial artery check and chemistry panel. He should then see 1 of the cardiologists in 3 months. Discharge Date/Time: 03/11/20 13:55 Discharge Attestations Time Spent in Discharge Care*: greater than 30 min Specific Discharge Activities: Specific discharge activities: educating patient, discussing with pcp/other providers, discussing with case sealer/social workers/dc planners, documenting/other paperwork and evaluating patient/reviewing data Status at Discharge: Cognitive status at discharge: cognitively intact, Behavioral status at discharge: cooperative, Functional status at discharge: independent ambulation Overall status at discharge: patient is back to baseline Quality Metrics Clinical Quality Measures During this hospital stay, did patient experience: AMI Clinical Trial Participant: No Contraindication to aspirin (AMI): Aspirin given Contraindication to statin: Statin prescribed Contraindication to PCI: PCI performed Contraindication to Fibrinolytics: Fibrinolytics given Coding Level of Care Code Acute Scientific Glass Blower for Edith Roblerod Diagnoses Acute anterior wall ID I21.09 Status post insertion of drug-eluting stent into left anterior descending artery Z95.5 HTN (hypertension) with goal to be determined I10
[2020-03-11 12:00] VITALS: BP 111/76; PULSE 65; RESP 17; TEMP 36.6; O2SAT 97
--- NOTE | 2020-03-11 13:09 | PC.NURSE ---
Pharmacy Pt choice to get his new meds at [facility].
[2020-03-11 13:12] VITALS: BP 111/76; PULSE 65; RESP 17; TEMP 36.6; O2SAT 97
--- NOTE | 2020-03-11 13:55 | PC.NURSE ---
Discharge to home Instructed pt to follow-up with his pcp and food and nutrition services supervisor patricia discussed. Educated pt on new meds actions, dosing, timing, possible side effects. Educated pt on post heart attack stoplight and post angiogram home are instructions as well as the activity restrictions. Heart stent and Discharge packet provided to pt. Ushered via wheelchair.
== END 2020-03-11 13:55 | disposition home or self-care (01) | DRG 247 ==
LOC: ER 17:51 → CSU 18:02
PROVIDERS: Internal Medicine Cardiovascular Disease; Admitting Provider Family Medicine; Emergency Provider Emergency Medicine; PCP Family Medicine; Visit Provider Student in an Organized Health Care Education/Training Program
PROC: 027034Z Dilation of Coronary Artery, One Artery with Drug-eluting Intraluminal Device, Percutaneous Approach (ICD-10-PCS; principal; 2020-03-09 21:00)
PROC: 027034Z Dilation of Coronary Artery, One Artery with Drug-eluting Intraluminal Device, Percutaneous Approach (ICD-10-PCS; 2020-03-09 21:00)
DX: I21.09 ST elevation (STEMI) myocardial infarction involving other coronary artery of anterior wall (principal); I10 Essential (primary) hypertension; Z79.82 Long term (current) use of aspirin; I20.0 Unstable angina; Z82.49 Family history of ischemic heart disease and other diseases of the circulatory system
CPT/HCPCS: 12345; 36415; 71045; 80053; 80061; 80306; 83036; 83690; 83735; 83880; 84100; 84443; 84484; 85025; 93005; 93452; 96372; 96375; 99283; C1769; C1874; C1887; C1894; C9606; J0360; J1170; J1644; J1650; J2001; J2250; J2405; J3010; J3490; J7030; Q9967

== ENCOUNTER → 2020-03-19 09:32 | Outpatient (BNVA) | payer BC, SELFPAY | PROVIDERS: PCP Family Medicine; Visit Provider Nurse Practitioner Family | DX: I25.10 Atherosclerotic heart disease of native coronary artery without angina pectoris (principal); Z95.5 Presence of coronary angioplasty implant and graft; I21.09 ST elevation (STEMI) myocardial infarction involving other coronary artery of anterior wall; E78.5 Hyperlipidemia, unspecified | CPT/HCPCS: 80048 ==

== ENCOUNTER 2020-06-24 15:01 | Outpatient (CLI) | payer BC, SELFPAY ==
--- NOTE | 2020-06-24 15:00 | USCV_ITS ---
Law Glen Age: 54 Gender: M : 1965 Exam Date: 06/24/2020 15:26 Ordering Phys: Joellen Flores Technologist: Sylvester Goldberg Exam Location: [facility] Indication: systolic heart failure BP: 116 / 85 HR: 57 Rhythm: Sinus Technical Quality: Adequate MEASUREMENTS (Male / Female) Normal Values 2D ECHO LV Diastolic Diameter PLAX 4.3 cm 4.2 - 5.9 / 3.9 - 5.3 cm LV Systolic Diameter PLAX 2.8 cm IVS Diastolic Thickness 1.1 cm 0.6 - 1.0 / 0.6 - 0.9 cm IVS Systolic Thickness 1.3 cm LVPW Diastolic Thickness 1.1 cm 0.6 - 1.0 / 0.6 - 0.9 cm LVPW Systolic Thickness 1.7 cm LVOT Diameter 2.0 cm LV Ejection Fraction 2D Teich 65.1 % LV Ejection Fraction MOD 2C 67.6 % LV Ejection Fraction 2C AL 66.6 % LA Diameter 3.6 cm LA Width 3.0 cm LA Height 4.3 cm RA Width 3.2 cm RA Height 4.1 cm M-MODE LV Diastolic Diameter MM 5.5 cm 4.2 - 5.9 / 3.9 - 5.3 cm LV Systolic Diameter MM 3.2 cm LV Ejection Fraction MM Teich 72.5 % IVS Diastolic Thickness MM 1.1 cm 0.6 - 1.0 / 0.6 - 0.9 cm IVS Systolic Thickness MM 1.7 cm LVPW Diastolic Thickness MM 0.9 cm 0.6 - 1.0 / 0.6 - 0.9 cm LVPW Systolic Thickness MM 2.0 cm RV Diastolic Diameter MM 2.1 cm Aortic Annulus Diameter 3.8 cm LA Ao Ratio MM 1.1 MV E Point Septal Separation 0.7 cm DOPPLER AV Peak Velocity 123.0 cm/s LVOT Peak Velocity 99.0 cm/s AV Area Cont Eq vti 2.8 cm squared AV Area Cont Eq pk 2.7 cm squared MV Area PHT 5.0 cm squared Mitral E to A Ratio 1.7 MV E' Velocity 56.0 cm/s Mitral E to MV E' Ratio 8.3 Mitral E to LV E' Lateral Ratio 7.0 Mitral E to LV E' Septal Ratio 10.3 TR Peak Velocity 265.7 cm/s TR Peak Gradient 28.2 mmHg TV Peak E Velocity 83.0 cm/s Right Atrial Pressure 3.0 mmHg Pulmonary Artery Systolic Pressu 31.2 mmHg PV Peak Velocity 94.0 cm/s FINDINGS Left Ventricle Normal left ventricular size and wall thickness. Mildly reduced LV systolic function with EF of 45 to 50%. Mild global hypokinesis is noted. Normal left ventricular wall thickness. Diastolic function is normal. Right Ventricle The right ventricle is normal in size and function. Right Atrium The right atrium is normal in size. Left Atrium The left atrium is normal in size. Mitral Valve Structurally normal mitral valve without significant stenosis or prolapse. There is no mitral regurgitation. Aortic Valve Structurally normal aortic valve without significant sclerosis or stenosis. There is no aortic regurgitation. Tricuspid Valve Structurally normal tricuspid valve without significant stenosis. Trace tricuspid regurgitation is noted. RV systolic pressure is 30 to 35 mmHg. Pulmonic Valve Structurally normal pulmonic valve without significant stenosis. There is no pulmonic regurgitation. Pericardium Normal pericardium without effusion. Aorta Normal ascending aorta dimension. CONCLUSIONS LV systolic borderline low with EF of 45 to 50%. Mild global hypokinesis is noted. Diastolic function is normal. No comparison studies are available. Arvind Morgan MD (Electronically Signed) Final Date: 24 June 2020 16:08 Amended: 28 September 2020 19:47 C
== END 2020-06-24 15:02 | disposition home or self-care (01) ==
LOC: RAD 15:03
PROVIDERS: PCP Family Medicine; Visit Provider Nurse Practitioner Family
DX: I50.20 Unspecified systolic (congestive) heart failure (principal)
CPT/HCPCS: 93306

== ENCOUNTER 2021-06-12 07:16 | Inpatient (IN) | payer BC, SELFPAY ==
[2021-06-12] VITALS (15 sets, daily range): BP systolic 114–147; BP diastolic 63–91; PULSE 47–63; RESP 13–19; TEMP 36.8–36.9; O2SAT 95–99; BMI 24.3
--- NOTE | 2021-06-12 07:21 | ECG_ITS ---
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 Measurements Intervals Vilas Rate: 61 P: 65 DC: 159 QRS: 79 QRSD: 101 T: 51 QT: 397 QTc: 403 Interpretive Statements SINUS RHYTHM Compared to ECG 03/09/2020 20:32:29 Sinus bradycardia no longer present Sinus arrhythmia no longer present Incomplete right bundle-branch block no longer present ST (T wave) deviation no longer present Electronically Signed On 06-13-2021 7:02:58 CDT by Xena Lozano M.D. [email or web address]
--- NOTE | 2021-06-12 07:21 | ED_ITS ---
HPI - Chest Pain General: Chief Complaint: Chest Pain Stated Complaint: CP Time Seen by Provider: 06/12/21 07:19 History of Present Illness: HPI narrative: 55 yo male presents to the ER with compaints of chest pain. Patient is having episodes of chest discomfort he does not describe in his pain just states it is tightening aching count of feeling is always associated with a bowel movement it will resolve spontaneously after about 10 to 15 minutes. Up until the last approximately week or so he was getting only one of these episodes a month now he is getting several per week. They are increasing in intensity as well. He also had noted at times he will get lightheaded dizzy not feel well when he checks his blood pressure he will find his blood pressure is markedly elevated. 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 Patient had anterior wall VT with a proximal LAD lesion which was stented in February [address] Alves. Reviewing the cardiology notes patient was noted to have a lesion of the in the RCA at 70% it was considered a small vessel and there was no intervention. Patient was seen and january of this year was having chest pain at that time and was started on isosorbide mononitrate he could not tolerate it so it was stopped his metoprolol was decreased last visit at the end of January he was reporting less chest discomfort and was happy with the results. Previous EF 15 months ago at the time of heart catheterization was 35%. 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) Onset (ago): month(s) Timing of current episode: episodic Prior episodes: Yes Onset: other (With bowel movement.) Pain location: left chest Pain radiation: left shoulder and right shoulder Severity: moderate Quality: tightness and heaviness Relieving factors: nothing Exacerbating factors: other (bowel movements) Associated symptoms: Deny abdominal pain, diaphoresis, dyspnea, fever(s), leg edema, nausea, palpitations, sense of impending doom, syncope or vomiting Treatment prior to arrival: nitroglycerin Review of Systems Const: Denies: fever(s) or diaphoresis ENMT: Denies: throat pain, ear or mastoid pain, nasal discharge or nasal congestion Card: Denies: palpitations or syncope Resp: Denies: dyspnea GI: Denies: abdominal pain, nausea or vomiting : Denies: flank pain, dysuria, urinary frequency or urinary urgency Skin/Breast: Denies: rash or pruritus PFSH ED PFSH: Medical History Coronary artery disease Family history of coronary artery disease Hyperlipidemia Hypertension Systolic heart failure EF per last echo 07/02 45 to 50% Tobacco dependency Surgical History History of inguinal hernia repair History of vasectomy Family History Father CAD (coronary artery disease) Hypertension Dementia Brother Cancer Mother Dementia Diabetes Denies family history of Clotting disorder Hyperlipidemia Psychiatric illness Chronic kidney disease (CKD) Suicide Anesthesia complication Bleeding disorder Family history of premature coronary artery disease Lung disease Stroke Social History Smoking and tobacco status: former smoker Quit status (tobacco): has quit using tobacco Alcohol intake: never Physical Exam Const: COMMON NORMALS: no acute distress GENERAL APPEARANCE: cooperative and comfortable ORIENTATION/CONSCIOUSNESS: Yes awake, Yes oriented to person, Yes oriented to place and Yes oriented to time HENMT: COMMON NORMALS: normocephalic, atraumatic and hearing grossly normal bilaterally HEAD & SCALP: normocephalic and atraumatic Neck/C-Spine: COMMON NORMALS: no JVD Resp: COMMON NORMALS: normal respiratory effort, No retractions, No use of accessory muscles and clear to auscultation bilaterally AUSCULTATION: clear to auscultation bilaterally Cardio: COMMON NORMALS: no JVD, regular rate, regular rhythm and No murmurs present (Cardio) RATE: regular rate RHYTHM: regular rhythm GI: COMMON NORMALS: Soft to palpation and No hepatosplenomegaly present AUSCULTATION: Yes normoactive bowel sounds PALPATION: Yes Soft to palpation, No Tenderness to palpation present (GI), No Guarding due to palpation present (GI) and Yes No hepatosplenomegaly present Extremity: COMMON NORMALS: normal to inspection, capillary refill normal, no clubbing, cyanosis or edema, no calf tenderness and no pedal edema Neuro: SENSORIUM/ORIENTATION: Yes oriented to person, Yes oriented to place and Yes oriented to time Skin: COMMON NORMALS: no rashes or lesions noted GENERAL SKIN EXAM: no rashes or lesions noted Course Vital Signs: Vital signs: Vital Signs Temperature 97.9 F 06/16/21 12:51 Pulse Rate 61 06/16/21 12:51 Respiratory Rate 15 06/16/21 12:51 Blood Pressure 116/73 06/16/21 12:51 Pulse Oximetry 96 06/16/21 12:51 MDM - Chest Pain MDM Narrative: Medical decision making narrative: Labs imaging and EKG reviewed. Concerning about the patient's history as well as episodes of some relative bradycardia. He is currently has been treated with nitro and aspirin. Is not having any chest pain at this time we will go and admit orders written. Lab Data: Labs: Lab Results 06/12/21 06/12/21 06/12/21 07:37 07:37 07:37 WBC 9.9 10^3/uL 10^3/ uL (4.0-10.0) RBC 4.90 10^6/uL 10^6 /uL (4.1-5.3) Hgb 15.5 g/dL g/dL (11.7-16.6) Hct 45.0 % % (42.0-52.0) MCV 91.8 fl fl (80-94) MCH 31.6 pg pg (28.0-34.0) MCHC 34.4 g/dL g/dL (30.0-36.0) RDW 12.6 % % (12.1-15.1) Plt Count 228 10^3/cmm 10^3 /cmm (130-400) MPV 10.7 fL H fL (7.4-10.4) Neut % (Auto) 81.3 % % Lymph % (Auto) 12.5 % % Gem % (Auto) 4.8 % % Eos % (Auto) 0.5 % % Baso % (Auto) 0.6 % % Neut # (Auto) 8.01 10^3/uL H 10 ^3/uL (1.8-7.7) Lymph # (Auto) 1.2 10^3/uL 10^3/ uL (0.8-4.8) Gem # (Auto) 0.5 10^3/uL 10^3/ uL (0.2-0.9) Eos # (Auto) 0.1 10^3/uL 10^3/ uL (0.0-0.8) Baso # (Auto) 0.1 10^3/uL 10^3/ uL (0.0-0.1) Nucleated RBC % (a uto) 0 % % Nucleated RBCs # 0.0 /100WBC /100W BC Sodium Cancelled Potassium Cancelled Chloride Cancelled Carbon Dioxide Cancelled Anion Gap Cancelled BUN Cancelled Creatinine Cancelled GFR Calculation Cancelled Glucose Cancelled Calculated Osmolal ity Cancelled Calcium Cancelled Magnesium Total Bilirubin Cancelled AST Cancelled ALT Cancelled Alkaline Phosphata se Cancelled Troponin T Baselin e Cancelled Troponin T 120 Min [place] Delta Troponin T Troponin T Hi Sens 6Hr Troponin T Hi Sens 6Hr Delta Total Protein Cancelled Albumin Cancelled Globulin Cancelled TSH 06/12/21 06/12/21 06/12/21 08:54 08:54 08:54 WBC RBC Hgb Hct MCV MCH MCHC RDW Plt Count MPV Neut % (Auto) Lymph % (Auto) Gem % (Auto) Eos % (Auto) Baso % (Auto) Neut # (Auto) Lymph # (Auto) Gem # (Auto) Eos # (Auto) Baso # (Auto) Nucleated RBC % (a uto) Nucleated RBCs # Sodium 137 mmol/L mmol/L (136-145) Potassium 4.0 mmol/L mmol/L (3.5-5.1) Chloride 104 mmol/L mmol/L (98-107) Carbon Dioxide 22 mmol/L mmol/L (22-29) Anion Gap 15.0 (5-19) BUN 16 mg/dL mg/dL (6-20) Creatinine 0.6 mg/dL L mg/dL (0.7-1.2) GFR Calculation 138.9 mL/min H mL /min (90-130) Glucose 94 mg/dL mg/dL (65-115) Calculated Osmolal ity 285 mOsm/kg mOsm/ kg (285-295) Calcium 8.7 mg/dL mg/dL (8.5-10.5) Magnesium 1.9 mg/dL mg/dL (1.7-2.3) Total Bilirubin 0.5 mg/dL mg/dL (0.15-1.2) AST 15 U/L U/L (0-40) ALT 16 U/L U/L (0-41) Alkaline Phosphata se 43 IU/L IU/L (40-130) Troponin T Baselin e 8 ng/L ng/L (0-15) Troponin T 120 Min [place] Delta Troponin T Troponin T Hi Sens 6Hr Troponin T Hi Sens 6Hr Delta Total Protein 6.3 g/dL L g/dL (6.6-8.7) Albumin 4.2 g/dL g/dL (3.5-5.2) Globulin 2.1 g/dL g/dL (1.3-4.6) TSH 1.49 uIU/mL uIU/m L (0.27-4.20) 06/12/21 06/12/21 06/13/21 11:12 14:58 03:24 WBC 8.7 10^3/uL 10^3/ uL (4.0-10.0) RBC 4.91 10^6/uL 10^6 /uL (4.1-5.3) Hgb 15.5 g/dL g/dL (11.7-16.6) Hct 45.0 % % (42.0-52.0) MCV 91.6 fl fl (80-94) MCH 31.6 pg pg (28.0-34.0) MCHC 34.4 g/dL g/dL (30.0-36.0) RDW 12.2 % % (12.1-15.1) Plt Count 210 10^3/cmm 10^3 /cmm (130-400) MPV 10.6 fL H fL (7.4-10.4) Neut % (Auto) 65.2 % % Lymph % (Auto) 26.5 % % Gem % (Auto) 6.3 % % Eos % (Auto) 1.5 % % Baso % (Auto) 0.3 % % Neut # (Auto) 5.66 10^3/uL 10^3 /uL (1.8-7.7) Lymph # (Auto) 2.3 10^3/uL 10^3/ uL (0.8-4.8) Gem # (Auto) 0.6 10^3/uL 10^3/ uL (0.2-0.9) Eos # (Auto) 0.1 10^3/uL 10^3/ uL (0.0-0.8) Baso # (Auto) 0.0 10^3/uL 10^3/ uL (0.0-0.1) Nucleated RBC % (a uto) 0 % % Nucleated RBCs # 0.0 /100WBC /100W BC Sodium Potassium Chloride Carbon Dioxide Anion Gap BUN Creatinine GFR Calculation Glucose Calculated Osmolal ity Calcium Magnesium Total Bilirubin AST ALT Alkaline Phosphata se Troponin T Baselin e Troponin T 120 Min [place] 7.99 ng/L ng/L (0-15) Delta Troponin T -0.01 ABS# L ABS# (0-10) Troponin T Hi Sens 6Hr 7.76 ng/L ng/L (0-15) Troponin T Hi Sens 6Hr Delta -0.24 ng/L L ng/L (0-12) Total Protein Albumin Globulin TSH 06/13/21 06/13/21 06/14/21 03:24 15:42 03:50 WBC 12.2 10^3/uL H 10 ^3/uL (4.0-10.0) RBC 5.06 10^6/uL 10^6 /uL (4.1-5.3) Hgb 15.6 g/dL g/dL 16.1 g/dL g/dL (11.7-16.6) (11.7-16.6) Hct 44.7 % % 46.4 % % (42.0-52.0) (42.0-52.0) MCV 91.7 fl fl (80-94) MCH 31.8 pg pg (28.0-34.0) MCHC 34.7 g/dL g/dL (30.0-36.0) RDW 12.3 % % (12.1-15.1) Plt Count 232 10^3/cmm 10^3 /cmm (130-400) MPV 10.6 fL H fL (7.4-10.4) Neut % (Auto) 80.8 % % Lymph % (Auto) 13.1 % % Gem % (Auto) 5.4 % % Eos % (Auto) 0.2 % % Baso % (Auto) 0.2 % % Neut # (Auto) 9.81 10^3/uL H 10 ^3/uL (1.8-7.7) Lymph # (Auto) 1.6 10^3/uL 10^3/ uL (0.8-4.8) Gem # (Auto) 0.7 10^3/uL 10^3/ uL (0.2-0.9) Eos # (Auto) 0.0 10^3/uL 10^3/ uL (0.0-0.8) Baso # (Auto) 0.0 10^3/uL 10^3/ uL (0.0-0.1) Nucleated RBC % (a uto) 0 % % Nucleated RBCs # 0.0 /100WBC /100W BC Sodium 141 mmol/L mmol/L (136-145) Potassium 4.1 mmol/L mmol/L (3.5-5.1) Chloride 107 mmol/L mmol/L (98-107) Carbon Dioxide 23 mmol/L mmol/L (22-29) Anion Gap 15.1 (5-19) BUN 18 mg/dL mg/dL (6-20) Creatinine 0.7 mg/dL mg/dL (0.7-1.2) GFR Calculation 116.2 mL/min mL/m in (90-130) Glucose 85 mg/dL mg/dL (65-115) Calculated Osmolal ity 293 mOsm/kg mOsm/ kg (285-295) Calcium 9.1 mg/dL mg/dL (8.5-10.5) Magnesium Total Bilirubin 0.8 mg/dL mg/dL (0.15-1.2) AST 13 U/L U/L (0-40) ALT 17 U/L U/L (0-41) Alkaline Phosphata se 39 IU/L L IU/L (40-130) Troponin T Baselin e Troponin T 120 Min [place] Delta Troponin T Troponin T Hi Sens 6Hr Troponin T Hi Sens 6Hr Delta Total Protein 6.5 g/dL L g/dL (6.6-8.7) Albumin 4.1 g/dL g/dL (3.5-5.2) Globulin 2.4 g/dL g/dL (1.3-4.6) TSH 06/14/21 06/14/21 03:50 14:47 WBC 13.6 10^3/uL H 10 ^3/uL (4.0-10.0) RBC 5.16 10^6/uL 10^6 /uL (4.1-5.3) Hgb 16.3 g/dL g/dL (11.7-16.6) Hct 46.6 % % (42.0-52.0) MCV 90.3 fl fl (80-94) MCH 31.6 pg pg (28.0-34.0) MCHC 35.0 g/dL g/dL (30.0-36.0) RDW 12.2 % % (12.1-15.1) Plt Count 258 10^3/cmm 10^3 /cmm (130-400) MPV 10.9 fL H fL (7.4-10.4) Neut % (Auto) 79.2 % % Lymph % (Auto) 13.1 % % Gem % (Auto) 7.0 % % Eos % (Auto) 0.0 % % Baso % (Auto) 0.4 % % Neut # (Auto) 10.78 10^3/uL H 1 0^3/uL (1.8-7.7) Lymph # (Auto) 1.8 10^3/uL 10^3/ uL (0.8-4.8) Gem # (Auto) 1.0 10^3/uL H 10^ 3/uL (0.2-0.9) Eos # (Auto) 0.0 10^3/uL 10^3/ uL (0.0-0.8) Baso # (Auto) 0.1 10^3/uL 10^3/ uL (0.0-0.1) Nucleated RBC % (a uto) 0 % % Nucleated RBCs # 0.0 /100WBC /100W BC Sodium 141 mmol/L mmol/L (136-145) Potassium 3.9 mmol/L mmol/L (3.5-5.1) Chloride 105 mmol/L mmol/L (98-107) Carbon Dioxide 21 mmol/L L mmol/ L (22-29) Anion Gap 18.9 (5-19) BUN 15 mg/dL mg/dL (6-20) Creatinine 0.6 mg/dL L mg/dL (0.7-1.2) GFR Calculation 138.9 mL/min H mL /min (90-130) Glucose 94 mg/dL mg/dL (65-115) Calculated Osmolal ity 293 mOsm/kg mOsm/ kg (285-295) Calcium 9.4 mg/dL mg/dL (8.5-10.5) Magnesium Total Bilirubin AST ALT Alkaline Phosphata se Troponin T Baselin e Troponin T 120 Min [place] Delta Troponin T Troponin T Hi Sens 6Hr Troponin T Hi Sens 6Hr Delta Total Protein Albumin Globulin TSH Discharge Plan Discharge Patient Disposition: Admitted As Inpatient Admit Provider: Curt Hernadez Clinical Impression: Chest pain, Coronary artery disease Condition: Stable Coding Level of Care Code ED Senior Structural Engineer for Chg Fwd Exam Comprehensive
--- NOTE | 2021-06-12 07:21 | XR_ITS ---
WS: [id number] Exam: XR chest 1V portable [id number] Date/Time of Exam: 06/12/2021 7:21 AM Reason For Exam: chest pain Comparison 03/09/2020 Findings: The lungs are clear and fully expanded. Costophrenic angles are sharp. No infiltrates. Bronchovascula r relief appears normal. Cardiac silhouette is unremarkable. Bony elements are intact. XR/XR chest 1V portable [id number] IMPRESSION: Unremarkable chest radiograph.
[2021-06-12 07:50] LABS: Basophils # 0.1 10^3/uL (0.0-0.1); Basophils % 0.6 %; Eosinophils # 0.1 10^3/uL (0.0-0.8); Eosinophils % 0.5 %; Hemoglobin 15.5 g/dL (11.7-16.6); Lymphocytes # 1.2 10^3/uL (0.8-4.8); Lymphocytes % 12.5 %; Mean Corpuscular HGB Conc 34.4 g/dL (30.0-36.0); Mean Corpuscular Hemoglobin 31.6 pg (28.0-34.0); Mean Corpuscular Volume 91.8 fl (80-94); Mean Platelet Volume 10.7 fL (7.4-10.4); Monocytes # 0.5 10^3/uL (0.2-0.9); Monocytes % 4.8 %; Neutrophils # 8.01 10^3/uL (1.8-7.7); Neutrophils % 81.3 %; Nucleated Red Blood Cells % 0 %; Platelet Count 228 10^3/cmm (130-400); Red Cell Distribution Width 12.6 % (12.1-15.1); White Blood Count 9.9 10^3/uL (4.0-10.0)
--- NOTE | 2021-06-12 08:01 | CT_ITS ---
WS: [id number] CT ANGIOGRAPHY abdomen and pelvis HISTORY: ischemic bowel TECHNIQUE: CT angiogram is performed during IV injection. Reformation images reviewed. All CT scans a [employer] use at least one of these dose optimization techniques: automated exposure contro l; mA and/or kV adjustment per patient size (includes targeted exams where dose is matched to clinica l indication); or iterative reconstruction. CONTRAST: Omnipaque 350; 95 mL IV. DLP: 576.33 mGy.cm COMPARISON: None available. Mild emphysematous changes at the lung bases. No pulmonary mass or nodule. Heart size is normal. Smal l hiatal hernia. Abdominal aorta: Normal size abdominal aorta. There are a few scattered plaques within the aorta. No dissection or aneurysm. Celiac axis is widely patent. There is a small amount of thrombus and calcifi cation within the splenic artery but no occlusion. Normal caliber SMA. There is a small amount of thr ombus and intimal thickening within the proximal to mid SMA but no occlusion. Less than 30% narrowing of the lumen. SABRINA is patent. Iliac arteries are normal. No aneurysms. Normal size renal arteries. Hepatic steatosis. Normal gallbladder and spleen. No adrenal mass. Low-attenuation nodule in the head of the pancreas measures 2.1 x 2.3 cm. No pancreatic duct dilatation. No ascites or adenopathy. Mucosal thickening and asymmetry at the cecum and ascending colon. Numerous diverticula throughout th e descending and sigmoid colon with wall thickening. No acute diverticulitis. No ischemic changes are noted. No free air or free fluid. Minimally distended urinary bladder. Prostate gland is enlarged with central calcifications. Moderate degenerative disc disease and osteophytosis within the lumbar spine. Foraminal stenosis is at least moderate at L5-S1. CT/CT angio abdomen pelvis [id number] IMPRESSION: 1. No abdominal aortic aneurysm. 2. No evidence for bowel ischemia. 3. Small amount of soft plaque in the proximal SMA. Stenosis and narrowing les s than 30%. 4. Advanced diverticulosis within the descending and sigmoid colon with mucosa l thickening and narrowing of the lumen. Additional mucosal thickening at the c ecum. No evidence for acute diverticulitis. Colonoscopy should be obtained for further evaluation and exclude neoplasm in these areas. 5. Low-attenuation nodule near the pancreatic head measures 2.1 x 2.3 cm. Kristopher y pancreatic neoplasm or focal pancreatitis. Artifact from dense associated con trast also is a possibility. No associated findings of pancreatitis. No obstruc tion of the common bile duct or pancreatic duct. Recommend short-term CT follow -up. Recommend pancreatic mass CT protocol follow-up in 2 weeks. Oral and IV co ntrast should be given.
--- NOTE | 2021-06-12 08:22 | PC.NURSE ---
Pt taken to CT at this time.
--- NOTE | 2021-06-12 08:32 | PC.NURSE ---
Pt returned from CT at this time.
[2021-06-12] MEDS: iohexol 350 mg/mL 100 mL Btl IV (08:33)
--- NOTE | 2021-06-12 09:21 | ECG_ITS ---
[facility] Test Date: 2021-06-12 Pat Name: Glen Foy Department: Room: 101 Gender: Male Outside Operator: : 1965 Requested By: Thiago Callahan Order Number: [id number] Lena MD: Xena Lozano M.D. Measurements Intervals [place] Rate: 52 P: 31 CT: 164 QRS: 60 QRSD: 97 T: 45 QT: 435 QTc: 408 Interpretive Statements SINUS BRADYCARDIA Compared to ECG 06/12/2021 07:26:12 Sinus rhythm no longer present Electronically Signed On 06-13-2021 7:06:05 CDT by Xena Lozano M.D. [email or web address]
[2021-06-12 09:27] LABS: Alanine Aminotransferase 16 U/L (0-41); Albumin Level 4.2 g/dL (3.5-5.2); Alkaline Phosphatase 43 IU/L (40-130); Aspartate Amino Transferase 15 U/L (0-40); Blood Urea Nitrogen 16 mg/dL (6-20); Calcium 8.7 mg/dL (8.5-10.5); Carbon Dioxide 22 mmol/L (22-29); Chloride 104 mmol/L (98-107); Globulin 2.1 g/dL (1.3-4.6); Glomerular Filtration Rate 138.9 mL/min (90-130); Glucose 94 mg/dL (65-115); Osmolality Calculated 285 mOsm/kg (285-295); Sodium 137 mmol/L (136-145); Total Bilirubin 0.5 mg/dL (0.15-1.2); Total Protein 6.3 g/dL (6.6-8.7)
[2021-06-12 09:28] LABS: Troponin(5th) Baseline 8 ng/L (0-15)
--- NOTE | 2021-06-12 10:10 | PC.PHAR ---
PT STATES HE TAKES CARE OF HIS OWN MEDICATIONS-PT STATES HE IS UNSURE OF ALL THE MEDICATIONS HE TAKES BUT STATES IF [facility] HAS FILLED THEM RECENTLY THEN HE TAKES PT STATES HE TAKES ABOUT 6 MEDICATIONS EVERYDAY-PT STATES HE TAKES 12.5MG BID OF METOPROLOL TARTRATE [facility] LAST FILLED ON 04/30/21 45D/S FOR 25MG BID-[facility] LAST FILLED ATORVASTATIN 20MG DAILY ON 03/20/21 90D/S PER [facility] STATES THEY HAVE THE PT SHOULD BE TAKING 40MG DAILY-PT STATES HE TAKES WHAT [facility] FILLED DR DUMAS WROTE FOR 20MG DAILY-NOTES ARE MADE IN THE PHARMACY COMMENTS
--- NOTE | 2021-06-12 10:19 | P.HP_ITS ---
Providers/Chief Complaint Primary Care Provider: Ish Johnson MD Chief Complaint: CP History of Present Illness Glen Foy is a 55 year old male who presents to the emergency department with complaints of escalating episodes of chest discomfort. He states this usually occurs when he has a bowel movement, and typically had been lasting only minutes but is lasting longer and occurring more frequently. He reports it is an ache in the center of his chest without significant radiation. Occasionally he will feel nauseated. The pain can be a numbness as well, and occasionally dull. He denies any shortness of breath. He cannot reliably say he has exertional chest discomfort. He was diagnosed with coronary disease in February 2020 and received an LAD drug-eluting stent. Mild diffuse luminal disease was noted in the circumflex and RCA was nondominant, small, and had a 70% stenosis that was not intervened upon. Patient reports his chest discomfort has been occurring since his angiogram and stent placement, and cardiology had previously been working with him on medication changes to alleviate this. He reports he has been quite bradycardic at times, and this could be playing a factor. His metoprolol has been reduced from 25 to 12.5 mg twice daily in the past. He reports during an episode he will typically note that his heart rate is around 50/upper 40s and blood pressure will be higher than typical. No cough or fever. Has been vaccinated for Covid. Second vaccination 2 to 3 months ago. Review of Systems General: Reports: 10 or more systems reviewed and unremarkable except in HPI and below Const: Denies: fever(s) or chills Eyes: Denies: change in vision ENMT: Denies: throat pain Card: Reports: chest pain Resp: Denies: dyspnea GI: Reports: nausea; Denies: abdominal pain : Denies: flank pain Musc: Denies: neck pain Skin/Breast: Denies: rash Neuro: Denies: headache(s) Psych: Reports: anxiety, depression and other; Denies: suicidal ideation Endo: Denies: polyuria Vu/Lymph: Denies: easy bruising All/Imm: Denies: urticaria Medications/Allergies Home Medications Medication Instructions Recorded Confirmed Last Taken Type All Day [employer] Greens See Rx Instructions .ROUTE .COMPLEX 03/09/20 06/12/21 06/11/21 History Cesilia Red Powder See Rx Instructions .ROUTE .COMPLEX 0606/12/21 03/09/20 History omeprazole 20 mg PO DAILY PRN 03/09/20 06/12/21 03/09/20 History nitroglycerin 0.4 mg sublingual 0.4 mg SUBLINGUAL Q5M PRN #30 tab 03/19/20 06/12/21 Unknown Rx tablet aspirin [Aspir-81] 81 mg PO QAM 06/12/21 06/12/21 06/12/21 05:30 History atorvastatin 20 mg PO QAM 06/12/21 06/12/21 06/11/21 History clopidogrel 75 mg PO QAM 06/12/21 06/12/21 06/11/21 History ezetimibe 10 mg PO QAM 06/12/21 06/12/21 06/11/21 History lisinopril 10 mg PO QAM 06/12/21 06/12/21 06/11/21 History metoprolol tartrate 12.5 mg PO BID 06/12/21 06/12/21 06/11/21 History psyllium husk [Metamucil] 1 tbsp PO DAILY 06/12/21 06/12/21 06/11/21 History tramadol 50 mg PO BID PRN 06/12/21 06/12/21 Unknown History Allergies Allergy/AdvReac Type Severity Reaction Status Date / Time No Known Allergies Allergy Verified 06/12/21 10:10 PFSH Acute PFSH: Medical History (Updated 06/12/21 @ 10:28 by Curt Hernadez MD) Coronary artery disease Family history of coronary artery disease Hyperlipidemia Hypertension Systolic heart failure EF per last echo 07/02 45 to 50% Tobacco dependency Surgical History (Updated 06/12/21 @ 10:28 by Curt Hernadez MD) History of inguinal hernia repair History of vasectomy Family History Father CAD (coronary artery disease) Hypertension Dementia Brother Cancer Mother Dementia Diabetes Denies family history of Clotting disorder Hyperlipidemia Psychiatric illness Chronic kidney disease (CKD) Suicide Anesthesia complication Bleeding disorder Family history of premature coronary artery disease Lung disease Stroke Social History Smoking and tobacco status: former smoker Quit status (tobacco): has quit using tobacco Alcohol intake: never Vitals/I&O/Wt Last Vital Signs Temp 98.3 F 06/12/21 07:32 Pulse 55 L 06/12/21 10:12 Resp 17 06/12/21 10:12 BP 115/75 06/12/21 10:12 Pulse Ox 98 06/12/21 10:12 Weight last 48 hrs Weight 77.111 kg Physical Exam Narrative: EXAM NARRATIVE: General exam is a white male in no distress. No chest discomfort currently. HEENT: Atraumatic and normocephalic. Pupils equally round. Oropharynx clear. Neck is supple no lymphadenopathy thyromegaly Cardiovascular regular rate and rhythm without murmur Lungs clear Abdomen is soft, positive bowel sounds. No obvious organomegaly exam is deferred Extremities no cyanosis clubbing or edema, cap refill brisk Skin no rash Neuro no focal deficits. Data : 06/12/21 07:37 06/12/21 08:54 Other data: Abdominal pelvis CTA demonstrates no evidence of aortic aneurysm or bowel ischemia. Small amount of plaque is seen in the SMA. Advanced diverticulosis and some thickening of the mucosa of the cecum is noted Low-attenuation nodule pancreatic head with concerns that this would need follow-up in 2 weeks with pancreatic mass CT protocol with oral and IV contrast Chest x-ray negative EKG demonstrates sinus rhythm, normal axis, no acute changes LFTs and albumin are normal Initial troponin VIII A&P Assessment and plan (1) Chest pain: Patient with escalating episodes of chest discomfort, usually associated with bowel movements. This could represent angina. Another possibility is significant bradycardia during Valsalva contributing to coronary ischemia. Observation Cardiology consultation We will hold off currently on repeating echocardiogram with further plans until cardiology input Patient does have significant bradycardia and will hold metoprolol at this time. Continue Plavix, aspirin, statin Status: Acute (2) Coronary artery disease: See above Status: Acute (3) Hyperlipidemia: Continue statin Status: Acute Qualifiers: Hyperlipidemia type: mixed hyperlipidemia Qualified Code(s): E78.2 - Mixed hyperlipidemia (4) HTN (hypertension) with goal to be determined: Continue CAYLA inhibitor. Hold metoprolol Status: Acute (5) Systolic heart failure: No evidence of exacerbation currently. Last EF 45 to 50%. Continue CAYLA inhibitor No need for diuretics at this time Hold beta-dahlia currently secondary to bradycardia Status: Acute Additional A&P Information Question of pancreatic nodule. Will need outpatient follow-up Mucosal thickening cecum. Patient reports colonoscopy approximately 4 years ago with polyps. Reports that needed to be repeated 5 years from that date. Other medical problems as listed in past medical history. Full code Lovenox for DVT prophylaxis Attestations Medical Necessity Statement*: Will need less than 2 midnight stay for evaluation and treatment of chest discomfort. Time Spent in Patient Care: Greater than 35 minutes Coding Level of Care Code Acute Tumbling And Rolling Supervisor for g Fwd Diagnoses Chest pain R07.9 Coronary artery disease I25.10 Hyperlipidemia E78.2 Hyperlipidemia type: mixed hyperlipidemia HTN (hypertension) with goal to be determined I10 Systolic heart failure I50.20
--- NOTE | 2021-06-12 10:49 | PC.NURSE ---
Attempted to call report to CSU but live ammunition inspector states there are no nurses available and one will call me when available.
[2021-06-12 10:58] LABS: Magnesium 1.9 mg/dL (1.7-2.3); Thyroid Stimulating Hormone 1.49 uIU/mL (0.27-4.20)
[2021-06-12 11:51] LABS: Troponin 5 2HR 7.99 ng/L (0-15)
[2021-06-12 11:52] LABS: Troponin 5 2HR Delta -0.01 ABS# (0-10)
--- NOTE | 2021-06-12 12:48 | P.CONIM_ITS ---
Providers/Reason For Consult Consulting Physician/Specialty*: Arvind Morgan MD/ Cardiology Reason for Consult*: Chest pain Requesting Physician: Dr Hernadez Attending Physician: Curt Hernadez MD Primary Care Provider: Ish Johnson MD History of Present Illness History of Present Illness lGen Foy is a 55 year old male with PMH of hypertension, HLD, coronary artery disease with PCI of mid LAD last year has presented to hospital with complaints of worsening chest pain. He has noted these episodes becoming more frequent in the last 1 month. He had a prolonged chest pain episode on Wednesday. Non exertional mostly, has noted occasional association with bowel movement. He also feels discomfort in the shoulder blades that radiates to the center of the chest. EKG does not show acute ST changes. Troponins are negative Review of Systems General: Reports: 10 or more systems reviewed and unremarkable except in HPI and below Const: Denies: fever(s) or chills Eyes: Denies: change in vision ENMT: Denies: throat pain Card: Reports: chest pain Resp: Denies: dyspnea GI: Reports: nausea; Denies: abdominal pain : Denies: flank pain Musc: Denies: neck pain Skin/Breast: Denies: rash Neuro: Denies: headache(s) Psych: Reports: anxiety, depression and other; Denies: suicidal ideation Endo: Denies: polyuria Vu/Lymph: Denies: easy bruising All/Imm: Denies: urticaria Meds/Allergies Home Medications and Allergies Home Medications Medication Instructions Recorded Confirmed Last Taken Type All [employer] Greens See Rx Instructions .ROUTE .COMPLEX 03/09/20 06/12/21 06/11/21 History Cesilia Red Powder See Rx Instructions .ROUTE .COMPLEX 03/09/20 06/12/21 03/09/20 History omeprazole 20 mg PO DAILY PRN 03/09/20 06/12/21 03/09/20 History nitroglycerin 0.4 mg sublingual 0.4 mg SUBLINGUAL Q5M PRN #30 tab 03/19/20 06/12/21 Unknown Rx tablet aspirin [Aspir-81] 81 mg PO QAM 06/12/21 06/12/21 06/12/21 05:30 History atorvastatin 20 mg PO QAM 06/12/21 06/12/21 06/11/21 History clopidogrel 75 mg PO QAM 06/12/21 06/12/21 06/11/21 History ezetimibe 10 mg PO QAM 06/12/21 06/12/21 06/11/21 History lisinopril 10 mg PO QAM 06/12/21 06/12/21 06/11/21 History metoprolol tartrate 12.5 mg PO BID 06/12/21 06/12/21 06/11/21 History psyllium husk [Metamucil] 1 tbsp PO DAILY 06/12/21 06/12/21 06/11/21 History tramadol 50 mg PO BID PRN 06/12/21 06/12/21 Unknown History Allergies Allergy/AdvReac Type Severity Reaction Status Date / Time No Known Allergies Allergy Verified 06/12/21 10:10 PFSH Acute PFSH: Medical History Coronary artery disease Family history of coronary artery disease Hyperlipidemia Hypertension Systolic heart failure EF per last echo 07/02 45 to 50% Tobacco dependency Surgical History History of inguinal hernia repair History of vasectomy Family History Father CAD (coronary artery disease) Hypertension Dementia Brother Cancer Mother Dementia Diabetes Denies family history of Clotting disorder Hyperlipidemia Psychiatric illness Chronic kidney disease (CKD) Suicide Anesthesia complication Bleeding disorder Family history of premature coronary artery disease Lung disease Stroke Social History Smoking and tobacco status: former smoker Quit status (tobacco): has quit using tobacco Alcohol intake: never Vitals/I&O/Wt Last Vital Signs Temp 98.4 F 06/12/21 12:00 Pulse 63 06/12/21 12:00 Resp 16 06/12/21 12:00 BP 147/89 06/12/21 12:00 Pulse Ox 96 06/12/21 12:00 Weight last 48 hrs Weight 170 lb Physical Exam Narrative: EXAM NARRATIVE: GENERAL:Alert and oriented x 3 HEENT: Exam within normal limits. NECK: Supple without jugular vein distention. The carotid upstroke is normal without bruits. BACK: Exam normal. LUNGS: Clear. HEART: Bradycardic, S1, S2 ABDOMEN: Benign without organomegaly or tenderness. EXTREMITIES: No edema. There is a small bruise at the site of the entry on the right radial artery area. This small amount of bleeding occurred as a result of the TR band being inadvertently pulled off prematurely. NEUROLOGIC: Exam normal. SKIN: Unremarkable. A&P Assessment and plan (1) Hyperlipidemia: Status: Acute Qualifiers: Hyperlipidemia type: mixed hyperlipidemia Qualified Code(s): E78.2 - Mixed hyperlipidemia (2) Coronary artery disease: Status: Acute (3) HTN (hypertension) with goal to be determined: Status: Acute (4) Unstable angina: Status: Acute (5) Systolic heart failure: Status: Acute Patient has been having worsening chest pain symptoms that are concerning for unstable angina. He also has a different atypical chest discomfort associated with bowel movement but that lasts only a few seconds to minutes. We will perform coronary angiogram with possible PCI tomorrow. Risks and benefits of the procedure discussed with the patient. NPO past midnight He has sinus bradycardia, hold rate controlling agents for now Aspirin and plavix Thank you for involving us with care of this patient. We will continue to follow. Please call with questions Coding Level of Care Code Acute Windows Security Analyst for Edith Mckeon Diagnoses Hyperlipidemia E78.2 Hyperlipidemia type: mixed hyperlipidemia Coronary artery disease I25.10 HTN (hypertension) with goal to be determined I10 Unstable angina I20.0 Systolic heart failure I50.20
[2021-06-12] MEDS: enoxaparin 40 mg/0.4 mL Syringe SUBCUT (13:21)
[2021-06-12 15:46] LABS: Troponin 5 6HR 7.76 ng/L (0-15)
[2021-06-12 15:49] LABS: Troponin 5 6HR Delta -0.24 ng/L (0-12)
--- NOTE | 2021-06-12 19:23 | PC.NURSE ---
Received report from KENY Gallegos. Patient resting in bed watching tv. Denies any chest pain presently. No distress observed. Discussed Dr Morgan's visit with him and plan for LHC in the morning. Instructed patient on LHC preparation as well. Patient verbalized complete understanding. Patient is ambulatory without any difficulty or need of assistive devices. Will continue to monitor.
--- NOTE | 2021-06-12 22:03 | PC.NURSE ---
Patient prepped for [facility]. Consent signed and placed in chart. Patient continues to deny pain. No distress observed.
[2021-06-13] VITALS (11 sets, daily range): BP systolic 106–132; BP diastolic 72–87; PULSE 48–61; RESP 12–22; TEMP 36.6–37; O2SAT 92–97
[2021-06-13 03:32] LABS: Basophils % 0.3 %; Eosinophils # 0.1 10^3/uL (0.0-0.8); Eosinophils % 1.5 %; Hemoglobin 15.5 g/dL (11.7-16.6); Lymphocytes # 2.3 10^3/uL (0.8-4.8); Lymphocytes % 26.5 %; Mean Corpuscular HGB Conc 34.4 g/dL (30.0-36.0); Mean Corpuscular Hemoglobin 31.6 pg (28.0-34.0); Mean Corpuscular Volume 91.6 fl (80-94); Mean Platelet Volume 10.6 fL (7.4-10.4); Monocytes # 0.6 10^3/uL (0.2-0.9); Monocytes % 6.3 %; Neutrophils # 5.66 10^3/uL (1.8-7.7); Neutrophils % 65.2 %; Nucleated Red Blood Cells % 0 %; Platelet Count 210 10^3/cmm (130-400); Red Blood Count 4.91 10^6/uL (4.1-5.3); Red Cell Distribution Width 12.2 % (12.1-15.1); White Blood Count 8.7 10^3/uL (4.0-10.0)
[2021-06-13 03:54] LABS: Alanine Aminotransferase 17 U/L (0-41); Albumin Level 4.1 g/dL (3.5-5.2); Alkaline Phosphatase 39 IU/L (40-130); Anion Gap 15.1 (5-19); Aspartate Amino Transferase 13 U/L (0-40); Blood Urea Nitrogen 18 mg/dL (6-20); Calcium 9.1 mg/dL (8.5-10.5); Carbon Dioxide 23 mmol/L (22-29); Chloride 107 mmol/L (98-107); Creatinine Clr Calc Pharmacy 122.9263; Globulin 2.4 g/dL (1.3-4.6); Glomerular Filtration Rate 116.2 mL/min (90-130); Glucose 85 mg/dL (65-115); Osmolality Calculated 293 mOsm/kg (285-295); Potassium 4.1 mmol/L (3.5-5.1); Sodium 141 mmol/L (136-145); Total Bilirubin 0.8 mg/dL (0.15-1.2); Total Protein 6.5 g/dL (6.6-8.7)
[2021-06-13] MEDS: lisinopril 10 mg Tablet PO (05:02)
[2021-06-13] MEDS: aspirin 81 mg EC Tablet PO (05:02)
[2021-06-13] MEDS: ezetimibe 10 mg Tablet PO (05:02)
[2021-06-13] MEDS: sodium chloride 0.9% 1,000 ML 50 ML IV (05:02)
[2021-06-13] MEDS: atorvastatin 40 mg Tablet 20 MG PO (05:02)
[2021-06-13] MEDS: diphenhydrAMINE 50 mg Capsule PO (05:02)
[2021-06-13] MEDS: clopidogrel 75 mg Tablet PO (05:02)
--- NOTE | 2021-06-13 05:29 | PC.NURSE ---
Shift Note Frequent safety and comfort rounds continue. Orders and/or nursing care completed as indicated. Patient monitored for response to intervention and treatment(s). Education provided includes Benadryl. Patient verbalized complete understanding. Noted patient to have decreased heart during sleep as low as 42. Doctors are aware. Patient c/o increased fatigue during episodes of slow heart rate and mild nausea. Plan for LHC this morning. Patient denies other needs or complaints. No pain. No other distresses observed. Will continue to monitor.
--- NOTE | 2021-06-13 06:00 | XACV_ITS ---
Exam Room: [facility] Ht: 178 cm Wt: 77 kg BSA: 1.96 m2 Gender: Male : 1965 Any Known Allergies: No known allergies Exam Priority: Routine Procedure(s): Procedure Description: Diagnostic procedure Procedure Description: PCI procedure Procedure Description: Drug Eluting Coronary Stent Procedure Description: PTCA Procedure Description: Coronary Angiography Procedure Description: Pressure Wire Diagnostic Cath Status: Urgent Diagnostic Findings * Left Main is short, no significant stenosis. * Circumflex is a large vessel. OM 1 is a large vessel and it gives off a smaller branch and this branch has proximal 60% stneosis. * Right Coronary Artery is non dominant vessel and has mid vessel 50-60% stenosis. * Proximal Left Anterior Descending: obstructive 70% stenosis, TOMI: 3 flow. Prior mid vessel stent is patent. * Coronary angiography shows left dominance. PCI Status: Urgent PCI Indication: Other Interventional Findings * PROCEDURE NOTE: Procedure details: We engaged left main artery with XB 3.0 guide catheter. IV heparin was administered to maintain an ACT above 250 seconds. After zeroing and equalization, FFR wire was crossed across the proximal LAD stenosis and FFR was obtained. FFR was significant and 0.77. We then proceeded with PCI of the proximal LAD. 3.00 x 12 mm semicompliant balloon was used to predilate the stenosis in the proximal LAD. This was followed by placement of 4.0 x 22 mm resolute [place] drug-eluting stent. We postdilated the proximal part of stent with 4.0 x8 mm NC balloon. At this time final angiogram was performed that showed excellent stent expansion, TOMI-3 flow and no residual stenosis. Guidewire and guide catheter were removed. 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 * Proximal Left Anterior Descendin% stenosis treated with a AB TREK 3.00X12 RX BALLOON, MDT R MAXI 4.0X22 SEBASTIAN, and MDT KAYLA EUPHORA RX [id number] BALLOON. 0% residual stenosis, TOMI: 3 flow. Conclusions 1. There is obstructive coronary artery disease with one vessel disease. Severe proximal LAD stenosis. 2. Proximal Left Anterior Descending was treated with a Balloon, Drug Eluting Stent, and Balloon. Recommendations * Aspirin and Plavix for atleast 1 year. * High intensity statin therapy. * Beta dahlia. * Outpatient cardiology follow up in 4 weeks. Interventional RX Recommendation: PCI w/o planned CABG Diagnostic RX Recommendation: PCI w/o planned CABG Anticoagulation: Heparin Pressures Phase:Rest AO : 102 / 72 ( 88 ) @ 5:24:00 AM 148 / 85 ( 109 ) @ 5:49:00 AM 167 / 53 ( 107 ) @ 5:50:00 AM Clinical Evaluation EBL: 5mL-10mL Procedural Details Procedure Consent Obtained. Marley Eagle RN circulating. Pre-Procedure Time Out. Identified patient by full name and date of as verbalized by the patient/guarantor. Does the consent match the physician's order: Yes. Accurate & Complete Informed Consent: Yes. Inpatient/Outpatient History & Physical on Chart: Yes. If H&P is completed, is and addenduem needed: No. Visualize and Verify Site with Patient/Guarantor: N/A. Relevant Radiology Images available: Yes. The risks, benefits, and alternatives of sedation and/or procedure were discussed by physician. The patient agrees to continue. [facility] Clinical Fraility Score: 2: Well. Sewer Pipe Press Operator Indications: Worsening Angina. Chest Pain Symptom Assessment: Typical Angina Symptoms. Cardiovascular Instability: No. Correct patient, site and procedure confirmed by cath team. PERRLA. Strong, equal hand electronics tech bilaterally. Lungs clear x 5 lobes. IV Site on Arrival: 20 gauge in the left forearm. IV Fluids: 0.9% NaCl at KVO. 0 mL infused prior to laborer golf course. Patient's family unavailable. Equipment: 6F - Radial. Cardiac Cath Pack. ACIST Manifold Kit Model BT 2000. Heparinized Saline (2 units/mL), 1000 mL bag. Procedure started. Physician notified at at 0539 and stated that he would be here to start the 0600 scheduled case at 0610. Oxygen started at 2liters/min via nasal canula. Pre Procedural Pulses: bilateral radial was 3+. right groin was prepped with chloroprep then draped in the usual sterile fashion. right radial was prepped with chloroprep then draped in the usual sterile fashion. Baseline sample Acquired. HR: 51 BPM. Physician notified again. Physician arrived. Physician scrubbed in. Immediate Pre-Procedure Time Out. Correct Patient: Yes; Correct Procedure: Yes; Correct Site: Yes; Correct Patient Position: Yes; Correct Supplies: Yes; Dried Flammable Prep: Yes; Blood Products Available: N/A. Lidocaine 1% infiltrated to the right radial. Arterial access obtained. A 5 telugu TIG catheter in over the exchange wire. Multiple views taken of right coronary artery. Catheter redirected to the LCA. Multiple views taken of left coronary artery. Catheter removed over the exchange wire. 6 telugu XB 3 guide catheter was inserted over the exchange wire. FFR wire in through the guide catheter. FFR equalized. FFR wire advanced to the distal LAD. Pa/Pd=0.77, aborting FFR. ACT drawn. Results 199 seconds. Therapeutic limits - pre-heparin administration 90-150 seconds and monitoring heparin during a vascular procedure >250 seconds. Inflation number : 1 A AB TREK 3.00X12 RX BALLOON was prepped and advanced across the Prox LAD , then inflated to 12 CARLIE for 0:29 seconds. Inflation number: 2 The AB TREK 3.00X12 RX BALLOON was reinflated across the Prox LAD, to 12 CARLIE for 0:16 seconds. balloon out. Inflation Number : 3 A NASRIN Bosch MAXI 4.0X22 SEBASTIAN -Lot Number# [id number] prepped and advanced across the Prox LAD. The stent was deployed at 12 CARLIE for 0:32 seconds. Exp. 08/28/2022. Stent balloon out. Inflation number : 4 A NASRIN GARZA EUPHORA RX [id number] BALLOON was prepped and advanced across the Prox LAD , then inflated to 14 CARLIE for 0:16 seconds. balloon out. FFR wire out. Results checked. Guide catheter out over the exchange wire. Physician scrubbed out. TR band placed. Hemostasis obtained. A TR Band was successful obtaining hemostatsis at the Right Radial artery insertion site. Post Procedure: Pulses reassessed and unchanged. PERRLA. Strong, equal hand electronics tech bilaterally. No VTE prophylaxis required. Medication's Wasted: Lidocaine 1% = 18 mL. Medication's Wasted: Adenosine = 90 mL. Medication's Wasted: Nitro = 49.6 mg. Total IV fluids: 80 mL. PCI Indication: Other. Post-op diagnosis: Severe proximal LAD stenosis. Complications: none. Estimated blood loss: 5mL-10mL. Procedure completed. Patient transferred by wheelchair to 1st floor. Vital chart was stopped. Access Site Site: Right Radial artery Sheath Size: 6 Fr Hemostasis Method: TR Band Hemostasis Success: Successful Procedure Medications Start: 6:16 AM Stop: 6:16 AM Medication: Versed Amount: 1 mg Route: I.V. Start: 6:16 AM Stop: 6:16 AM Medication: Fentanyl Amount: 50 mcg Route: I.V. Start: 6:20 AM Stop: 6:20 AM Medication: Nitrogylcerin Amount: 200 mcg Route: I.A. Start: 6:21 AM Stop: 6:21 AM Medication: Versed Amount: 1 mg Route: I.V. Start: 6:23 AM Stop: 6:23 AM Medication: Heparin Amount: 5000 units Route: I.V. Start: 6:30 AM Stop: 6:30 AM Medication: Heparin Amount: 3000 units Route: I.V. Start: 6:35 AM Stop: 6:35 AM Medication: Fentanyl Amount: 50 mcg Route: I.V. Start: 6:43 AM Stop: 6:43 AM Medication: Heparin Amount: 3000 units Route: I.V. Start: 6:49 AM Stop: 6:49 AM Medication: Aggrastat 12.5 mg/250 mL Amount: 39 ml Route: I.V. bolus Start: 6:49 AM Stop: 6:49 AM Medication: Aggrastat 12.5 mg/250 mL Amount: 14 ml/hr Route: I.V. drip Start: 6:52 AM Stop: 6:52 AM Medication: Nitrogylcerin Amount: 200 mcg Route: I.C. Start: 7:00 AM Stop: 7:00 AM Medication: Plavix Amount: 600 mg Route: P.O. I, the attending physician, have reviewed and verified all procedure medications. Yes, all medications given per verbal order History/Risk Factors Hypertension: Yes Dyslipidemia: Yes Peripheral Arterial Disease (PAD): No Myocardial Infarction ([place]): Yes Obesity: No Renal Disease: No Tobacco Use: Former Prior Interventions PCI: Yes CABG: No Valve Surgery: No Date of PCI: 03/09/2020 Report Signatures Finalized by Arvind Morgan MD on 06/28/2021 08:50 PM
[2021-06-13] MEDS: sodium chloride 0.9% 1,000 ML 100 ML IV (07:30)
--- NOTE | 2021-06-13 08:00 | PC.NURSE ---
Chest Discomfort Pt stated he wants to go to the bathroom to have a BM. Assisted pt to the [facility] [place]. He had a BM. During activity, pt started to complain of, i don't feel good. I am sick to my stomach. have a dull, achy discomfort in the center of my chest. pt rated the discomfort 1-2 per pain scale. Assisted pt back in bed. BP-between 169/88-173/86, HR- ranges between 38-42, sinus Bradycardia. EKG taken. Dr. Morgan notified via phone. Received order to give pt SL nitro. 250 ml of fluid. Informed that pt is already on 100 mls of fluid for 6 hr. He is okay to give the 250 ml.
--- NOTE | 2021-06-13 08:28 | ECG_ITS ---
[facility] Test Date: 2021-06-13 Pat Name: Glen Foy Department: Room: 101 Gender: Male Revival Clerk: : 1965 Requested By: Arvind Morgan Order Number: [id number] Lena MD: Arvind Morgan M.D. Measurements Intervals [place] Rate: 42 P: -11 [place]: 169 QRS: 68 QRSD: 85 T: 57 QT: 442 QTc: 370 Interpretive Statements SINUS BRADYCARDIA Compared to ECG 06/12/2021 13:31:10 No significant changes Electronically Signed On 06-13-2021 21:05:40 CDT by Arvind Morgan M.D. [id number]
--- NOTE | 2021-06-13 08:55 | PC.NURSE ---
At this time, Pt denies any dull achy chest discomfort as he had described earlier. Pt stated, it went away. Pt refused to take his Nitro SL PRN. Pt stated, I'm feeling better now.
--- NOTE | 2021-06-13 09:11 | PM.PN ---
Subjective Subjective: Interval history: Glen underwent LAD stenting this morning. He reports he is doing okay when I visited him. Medications: Reviewed: Yes Vitals/I&O/Wt Last Vital Signs Temp 97.8 F 06/13/21 07:01 Pulse 51 L 06/13/21 07:01 Resp 16 06/13/21 07:01 BP 111/72 06/13/21 07:01 Pulse Ox 94 06/13/21 07:01 06/12/21 06/13/21 06/13/21 22:59 06:59 14:59 Intake Total 240 / 480 Output Total 250 / 250 Balance - Weight last 48 hrs Weight 77.111 kg Physical Exam Narrative: EXAM NARRATIVE: General exam is a white male in no distress. Neck is supple no lymphadenopathy thyromegaly Cardiovascular regular rate and rhythm without murmur Lungs clear Abdomen is soft, positive bowel sounds. No obvious organomegaly Extremities no cyanosis clubbing or edema, cap refill brisk. Band on right wrist without significant hematoma Data : 06/13/21 03:24 06/13/21 03:24 A&P Assessment and plan (1) Chest pain: Patient with escalating episodes of chest discomfort, usually associated with bowel movements. This could represent angina. Another possibility is significant bradycardia during Valsalva contributing to coronary ischemia. Underwent LAD stenting this morning without complication Cardiology consultation We will hold off currently on repeating echocardiogram with further plans until cardiology input Patient does have significant bradycardia and will hold metoprolol at this time. Continue Plavix, aspirin, statin Repeat CBC and BMP tomorrow Status: Acute (2) Coronary artery disease: See above Status: Acute (3) Hyperlipidemia: Continue statin Status: Acute Qualifiers: Hyperlipidemia type: mixed hyperlipidemia Qualified Code(s): E78.2 - Mixed hyperlipidemia (4) HTN (hypertension) with goal to be determined: Continue CAYLA inhibitor. Hold metoprolol secondary to bradycardia Status: Acute (5) Systolic heart failure: No evidence of exacerbation currently. Last EF 45 to 50%. Continue CAYLA inhibitor No need for diuretics at this time Hold beta-dahlia currently secondary to bradycardia Status: Acute Additional A&P Information Question of pancreatic nodule. Will need outpatient follow-up in [address] scan with oral and IV contrast Mucosal thickening cecum. Patient reports colonoscopy approximately 4 years ago with polyps. Reports that needed to be repeated 5 years from that date. Other medical problems as listed in past medical history. Full code Lovenox for DVT prophylaxis Attestations Medical Necessity Statement*: Needs continued hospitalization secondary to need for close monitoring following LAD stenting. Coding Level of Care Code Acute Forest Landscape Ecology Professor for Sujeyg Fwd Diagnoses Chest pain R07.9 Coronary artery disease I25.10 Hyperlipidemia E78.2 Hyperlipidemia type: mixed hyperlipidemia HTN (hypertension) with goal to be determined I10 Systolic heart failure I50.20
--- NOTE | 2021-06-13 09:23 | W.PM.OPSUD ---
Surgery/Procedure H&P Update DATE OF PROCEDURE: June 13, 2021 DATE H&P PERFORMED: 06/12/21 H&P UPDATE INFORMATION: I have reviewed H&P completed within last 30 days, I have examined patient prior to procedure and No changes to prior documentation PREOP DIAGNOSIS: Unstable angina PRIMARY INDICATION FOR PROCEDURE: Unstable angina PLANNED PROCEDURE: Operation Date: 06/13/21 06:00 Proposed Procedures p Cardiac Catheterization(Left) - Arvind Morgan M.D Possible percutaneous coronary intervention PATIENT REASSESSED PRIOR TO SEDATION, WITH NO CHANGE NOTED: Yes PHYSICAL EXAM: alert, oriented x 3, clear to auscultation bilaterally and regular rate & rhythm AIRWAY EVAL/ANESTHESIA PLAN: ASA III, Monitored Anesthesia, Local Anesthesia, Risks, benefits & alternatives of sedation and/or procedure discussed and Patient agrees to continue as planned
--- NOTE | 2021-06-13 10:50 | PC.NURSE ---
Aggrastat Drip stopped Drip stopped at 1050 as telephone ordered from Dr. Morgan. TR band is intact. No hematoma, swelling or bleeding noted. Radial pulse is palpable +3. Skin is warm.
[2021-06-13] MEDS: pantoprazole DR 40 mg Tablet PO (12:15)
[2021-06-13 15:48] LABS: Hematocrit 44.7 % (42.0-52.0); Hemoglobin 15.6 g/dL (11.7-16.6)
[2021-06-13] MEDS: pantoprazole 40 mg SDV IVP (18:05)
--- NOTE | 2021-06-13 20:09 | PC.NURSE ---
Patient c/o nausea, anxiousness, flushed/hot feeling prior to bowel movements and states it goes 30 minutes after bowel movement. Patient states these symptoms come prior to every bowel movement.
--- NOTE | 2021-06-13 21:13 | P.PN_ITS ---
Subjective Subjective: Interval history: Patient underwent coronary angiography this AM that showed severe proximal LAD stenosis and underwent PCI of LAD with SEBASTIAN x 1. No chest pain. Vitals/I&O/Wt Last Vital Signs Temp 98.3 F 06/13/21 18:07 Pulse 53 L 06/13/21 20:09 Resp 15 06/13/21 20:09 BP 106/78 06/13/21 20:09 Pulse Ox 94 06/13/21 20:09 06/13/21 06/13/21 06/13/21 06:59 14:59 22:59 Intake Total 360 / 360 2111.667 / 2471.667 Output Total 550 / 550 Balance -190 / -190 2111.667 / 1921.667 Weight last 48 hrs Weight 170 lb Physical Exam Narrative: EXAM NARRATIVE: GENERAL:Alert and oriented x 3 HEENT: Exam within normal limits. NECK: Supple without jugular vein distention. The carotid upstroke is normal without bruits. BACK: Exam normal. LUNGS: Clear. HEART: Bradycardic, S1, S2 ABDOMEN: Benign without organomegaly or tenderness. EXTREMITIES: No edema. There is a small bruise at the site of the entry on the right radial artery area. This small amount of bleeding occurred as a result of the TR band being inadvertently pulled off prematurely. NEUROLOGIC: Exam normal. SKIN: Unremarkable. Data : 06/14/21 03:50 06/14/21 03:50 A&P Assessment and plan (1) Hyperlipidemia: Status: Acute Qualifiers: Hyperlipidemia type: mixed hyperlipidemia Qualified Code(s): E78.2 - Mixed hyperlipidemia (2) Coronary artery disease: Status: Acute (3) HTN (hypertension) with goal to be determined: Status: Acute (4) Unstable angina: Status: Acute (5) Systolic heart failure: Status: Acute Patient admitted with unstable angina symptoms and underwent coronary angiogram that showed severe proximal LAD stenosis. He underwent successful revascularization with SEBASTIAN x1. Aspirin and Plavix for atleast 1 year High intensity statin therapy Has sinus bradycardia. Will hold off on rate controlling agents for now. Thank you for involving us with care of this patient. We will continue to follow. Please call with questions Attestations Medical Necessity Statement*: Care expected to cross 2 midnights. Coding Level of Care Code Acute Dry Cell Assembly Supervisor for Edith Mckeon Diagnoses Hyperlipidemia E78.2 Hyperlipidemia type: mixed hyperlipidemia Coronary artery disease I25.10 HTN (hypertension) with goal to be determined I10 Unstable angina I20.0 Systolic heart failure I50.20
--- NOTE | 2021-06-13 23:30 | PC.NURSE ---
Patient states that when he turned on his right side, he felt like he was going to throw up.
[2021-06-13] MEDS: ondansetron 2 mg/ML SDV 2 mL 4 MG IVP (23:36)
[2021-06-14] VITALS (8 sets, daily range): BP systolic 122–158; BP diastolic 71–92; PULSE 46–63; RESP 12–16; TEMP 36.8–36.9; O2SAT 94–97
--- NOTE | 2021-06-14 02:35 | PC.NURSE ---
Lab called and notified that stool sample for occult blood was sent to lab last night around 1900 and has not resulted yet. Lab staff states, it has been received but has not resulted yet.
[2021-06-14 04:14] LABS: Basophils % 0.2 %; Eosinophils % 0.2 %; Hematocrit 46.4 % (42.0-52.0); Hemoglobin 16.1 g/dL (11.7-16.6); Lymphocytes # 1.6 10^3/uL (0.8-4.8); Lymphocytes % 13.1 %; Mean Corpuscular HGB Conc 34.7 g/dL (30.0-36.0); Mean Corpuscular Hemoglobin 31.8 pg (28.0-34.0); Mean Corpuscular Volume 91.7 fl (80-94); Mean Platelet Volume 10.6 fL (7.4-10.4); Monocytes # 0.7 10^3/uL (0.2-0.9); Monocytes % 5.4 %; Neutrophils # 9.81 10^3/uL (1.8-7.7); Neutrophils % 80.8 %; Nucleated Red Blood Cells % 0 %; Platelet Count 232 10^3/cmm (130-400); Red Blood Count 5.06 10^6/uL (4.1-5.3); Red Cell Distribution Width 12.3 % (12.1-15.1); White Blood Count 12.2 10^3/uL (4.0-10.0)
[2021-06-14] MEDS: alum-mag-hydroxide-sime 30 mL UDC PO (04:22)
[2021-06-14] MEDS: ondansetron 2 mg/ML SDV 2 mL 4 MG IVP ×2 (04:22→12:45)
[2021-06-14] MEDS: pantoprazole 40 mg SDV IVP ×2 (04:22→18:19)
[2021-06-14] MEDS: aspirin 81 mg EC Tablet PO (04:23)
[2021-06-14] MEDS: atorvastatin 40 mg Tablet 20 MG PO (04:23)
[2021-06-14] MEDS: clopidogrel 75 mg Tablet PO (04:23)
[2021-06-14] MEDS: ezetimibe 10 mg Tablet PO (04:23)
[2021-06-14] MEDS: lisinopril 10 mg Tablet PO (04:23)
--- NOTE | 2021-06-14 04:24 | ECG_ITS ---
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
[2021-06-14 04:30] LABS: Anion Gap 18.9 (5-19); Blood Urea Nitrogen 15 mg/dL (6-20); Calcium 9.4 mg/dL (8.5-10.5); Carbon Dioxide 21 mmol/L (22-29); Chloride 105 mmol/L (98-107); Glomerular Filtration Rate 138.9 mL/min (90-130); Glucose 94 mg/dL (65-115); Osmolality Calculated 293 mOsm/kg (285-295); Potassium 3.9 mmol/L (3.5-5.1); Sodium 141 mmol/L (136-145)
--- NOTE | 2021-06-14 04:37 | PC.NURSE ---
Addendum entered by Quiana Boyd RN 06/14/21 04:51: PRN Alivia ordered. Original Note: Dr. Plaza notified of patient c/o upper abdominal pain. When patient points to pain, it appears to be in upper abdominal area, not the chest area, however EKG obtained to rule out cardiac issues. Dr. Plaza notified that patient's stool sample tested positive for occult blood.
--- NOTE | 2021-06-14 05:19 | PC.NURSE ---
Patient refused Hydrocodone. Patient states, It's not really pain and it's not really nausea, it's just a sick feeling in my stomach. I'm afraid it's my colon.
--- NOTE | 2021-06-14 09:45 | PM.PN ---
Subjective Subjective: Interval history: Patient complaining of melena heart flashes today. He has history of prior ulcers Medications: Reviewed: Yes Vitals/I&O/Wt Last Vital Signs Temp 98.3 F 06/14/21 07:35 Pulse 55 L 06/14/21 07:35 Resp 16 06/14/21 07:35 BP 155/92 06/14/21 07:35 Pulse Ox 96 06/14/21 07:35 06/13/21 06/14/21 06/14/21 22:59 06:59 14:59 Intake Total 2111.667 / 2471.667 400 / 2871.667 Balance 2111.667 / 1921.667 400 / 2321.667 Physical Exam Narrative: EXAM NARRATIVE: GENERAL: Patient is alert, awake and oriented x3. NECK: No jugular vein distension. HEENT: No cyanosis. No icterus. No pallor. HEART: Regular S1 and S2. No murmur, rub or gallop. LUNGS: Clear to auscultate bilaterally. ABDOMEN: Soft, nontender and nondistended. Positive bowel sounds. No guarding, rebound or tenderness. CENTRAL NERVOUS SYSTEM: Grossly nonfocal. EXTREMITIES: Lower extremities without edema bilaterally. Data : 06/14/21 14:47 06/14/21 03:50 Micro: Microbiology 06/13/21 19:00 Occult Blood (FIT) - Final Stool - Stool Aspirate A&P Assessment and plan (1) Hyperlipidemia: Status: Acute Qualifiers: Hyperlipidemia type: mixed hyperlipidemia Qualified Code(s): E78.2 - Mixed hyperlipidemia (2) Coronary artery disease: Status: Acute (3) HTN (hypertension) with goal to be determined: Status: Acute (4) Unstable angina: Status: Acute (5) Systolic heart failure: Status: Acute (6) GI bleed: Status: Acute Patient admitted with unstable angina symptoms and underwent coronary angiogram that showed severe proximal LAD stenosis. He underwent successful revascularization with SEBASTIAN x1. Aspirin and Plavix for atleast 1 year High intensity statin therapy Has sinus bradycardia. Will hold off on rate controlling agents for now. Thank you for involving us with care of this patient. We will continue to follow. Please call with questions Attestations Medical Necessity Statement*: Patient require continuation hospitalization for above defined care. 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
--- NOTE | 2021-06-14 11:15 | PM.PN ---
Subjective Subjective: Interval history: Seen and examined today. Patient reports that he has been having black stools overnight. He also reports a history of internal hemorrhoids and sometimes does get gross blood from time to time. But lately he has not been. He states his stool is pure black. He denies a history of GI bleed. He just received a drug-eluting stent yesterday and is on aspirin and Plavix. Nurse reported patient had 2 BMs today which were small and sort of a copper-like color. There were not purely black however. Vitals/I&O/Wt Last Vital Signs Temp 98.3 F 06/14/21 07:35 Pulse 55 L 06/14/21 07:35 Resp 16 06/14/21 07:35 BP 155/92 06/14/21 07:35 Pulse Ox 96 06/14/21 07:35 06/13/21 06/14/21 06/14/21 22:59 06:59 14:59 Intake Total 2111.667 / 2471.667 400 / 2871.667 Balance 2111.667 / 1921.667 400 / 2321.667 Physical Exam Narrative: EXAM NARRATIVE: General: Alert oriented x3, patient seen laying in bed appearing comfortable. HEENT: Normocephalic, atraumatic, EOMI, breathing room air. Cardio: Regular rate rhythm, normal S1-S2, no murmurs rubs gallops, Respiratory: Good bilateral air entry, no wheezes no rhonchi appreciated GI: Abdomen soft, nontender, nondistended, bowel sounds + Behavior: Appropriate and cooperative Extremities: no edema, no cyanosis Data : 06/14/21 14:47 06/14/21 03:50 Micro: Microbiology 06/13/21 19:00 Occult Blood (FIT) - Final Stool - Stool Aspirate A&P Assessment and plan (1) GI bleed: Status: Acute (2) Unstable angina: Status: Acute (3) Systolic heart failure: Status: Acute (4) Coronary artery disease: Status: Acute (5) Status post insertion of drug-eluting stent into left anterior descending artery: Status: Acute (6) HTN (hypertension) with goal to be determined: Status: Acute Additional A&P Information Patient admitted with unstable angina symptoms and underwent coronary angiogram that showed severe proximal LAD stenosis. He underwent successful revascularization with SEBASTIAN x1. Aspirin and Plavix for atleast 1 year High intensity statin therapy Has sinus bradycardia. Will hold off on rate controlling agents for now. Cardiology following and on board Questionable upper GI bleed ?Patient complains of dark stools which are black in color overnight. Nursing staff saw stool this morning which was copper light-colored but not pure black. Patient also reports a history of internal hemorrhoids but does not report gross blood per rectum. Hemoglobin has been stable. We will check H&H every 8 hours. Will monitor for black stools. I will change Protonix to 40 twice daily IV. I will also add sucralfate 1 g twice daily. I will continue to monitor the patient. We will get GI/surgery involved for potential endoscopy if he indeed has melena. I have asked the nurse to collect stool. Fecal occult blood has been positive. Fluids: Not indicated at this time Electrolytes replete as needed Nutrition: N.p.o. for now Activity: As tolerated DVT prophylaxis: SCDs. Patient is on aspirin and Plavix we will continue that. I will not order x-rays Lovenox for him due to questionable GI bleed going on. Attestations Medical Necessity Statement*: Has melena. Requires monitoring in hospital. Time Spent in Patient Care: 16 - 35 minutes Coding Level of Care Code Acute [place] [facility] Lab Technician for Edith Mckeon Diagnoses GI bleed K92.2 Unstable angina I20.0 Systolic heart failure I50.20 Coronary artery disease I25.10 Status post insertion of drug-eluting stent into left anterior descending artery Z95.5 HTN (hypertension) with goal to be determined I10
[2021-06-14 15:38] LABS: Basophils # 0.1 10^3/uL (0.0-0.1); Basophils % 0.4 %; Hematocrit 46.6 % (42.0-52.0); Hemoglobin 16.3 g/dL (11.7-16.6); Lymphocytes # 1.8 10^3/uL (0.8-4.8); Lymphocytes % 13.1 %; Mean Corpuscular Hemoglobin 31.6 pg (28.0-34.0); Mean Corpuscular Volume 90.3 fl (80-94); Mean Platelet Volume 10.9 fL (7.4-10.4); Neutrophils # 10.78 10^3/uL (1.8-7.7); Neutrophils % 79.2 %; Nucleated Red Blood Cells % 0 %; Platelet Count 258 10^3/cmm (130-400); Red Blood Count 5.16 10^6/uL (4.1-5.3); Red Cell Distribution Width 12.2 % (12.1-15.1); White Blood Count 13.6 10^3/uL (4.0-10.0)
[2021-06-14] MEDS: sucralfate 1 gm Tablet PO (18:18)
--- NOTE | 2021-06-14 18:57 | PC.NURSE ---
Shift Note Frequent safety and comfort rounds continue. Orders and/or nursing care completed as indicated. Patient monitored for response to intervention and treatment(s). Education provided includes further testing . Patient and/or telemarketing representative verbalized understanding. Will continue to monitor.
[2021-06-14] MEDS: temazepam 15 mg Capsule PO (23:08)
[2021-06-14] MEDS: acetaminophen 325 mg Tablet 650 MG PO (23:08)
[2021-06-15] VITALS (7 sets, daily range): BP systolic 96–139; BP diastolic 61–75; PULSE 56–62; RESP 8–22; TEMP 36.8–36.9; O2SAT 94–96
[2021-06-15] MEDS: aspirin 81 mg EC Tablet PO (05:09)
[2021-06-15] MEDS: lisinopril 10 mg Tablet PO (05:09)
[2021-06-15] MEDS: ezetimibe 10 mg Tablet PO (05:09)
[2021-06-15] MEDS: sucralfate 1 gm Tablet PO ×2 (05:09→18:10)
[2021-06-15] MEDS: atorvastatin 40 mg Tablet 20 MG PO (05:09)
[2021-06-15] MEDS: clopidogrel 75 mg Tablet PO (05:10)
[2021-06-15] MEDS: pantoprazole 40 mg SDV IVP ×2 (05:10→18:10)
[2021-06-15] MEDS: acetaminophen 325 mg Tablet 650 MG PO (06:38)
[2021-06-15] MEDS: ondansetron 2 mg/ML SDV 2 mL 4 MG IVP (06:38)
--- NOTE | 2021-06-15 08:27 | P.PN_ITS ---
Subjective Subjective: Interval history: Patient reports that he is comfortable from the chest pain standpoint today however he has a history of facial flushing, chest burning, and watery diarrhea that has been going off on and off for months at this point. Every time he uses the bathroom his face chest and shoulders all turned red. He also feels hot during these episodes. The nurses also witnessed these episodes while patient is inpatient. These episodes are also associated with tachycardia and are mainly triggered when he has a bowel movement. He is unsure if they are related to food but definitely associated with alcohol. He states therefore he stopped drinking. He has never had any work-up done for this and has been to several doctors. I have ordered a urine 5 HIAA on him ye sterday and we are currently collecting urine to complete 24-hour period. Patient has not had any more melanotic stools. Stools are starting to clear up and is brown but now has become completely watery. His abdomen is also feeling sore after going to the bathroom so many times. He was kept n.p.o. up until now but have started him on clear liquids today. Vitals/I&O/Wt Last Vital Signs Temp 98.5 F 06/14/21 23:09 Pulse 56 L 06/15/21 03:31 Resp 17 06/15/21 03:17 BP 139/75 06/15/21 03:17 Pulse Ox 96 06/15/21 03:17 06/14/21 06/15/21 06/15/21 22:59 06:59 14:59 Intake Total 50 / 50 50 / 100 Output Total 300 / 303 Balance -250 / -253 50 / -203 Physical Exam Narrative: EXAM NARRATIVE: General: Alert oriented x3, patient seen sitting up in the recliner appearing somewhat comfortable. HEENT: Normocephalic, atraumatic, EOMI, breathing room air. Cardio: Regular rate rhythm, normal S1-S2, no murmurs rubs gallops, Respiratory: Good bilateral air entry, no wheezes no rhonchi appreciated GI: Abdomen soft, very mildly tender/sore, nondistended, bowel sounds + Behavior: Appropriate and cooperative Extremities: no edema, no cyanosis Skin: Redness on chest and shoulders appreciated. Does not appear like cellulitis. Data : 06/14/21 14:47 06/14/21 03:50 Micro: Microbiology 06/13/21 19:00 Occult Blood (FIT) - Final Stool - Stool Aspirate A&P Assessment and plan (1) GI bleed: Status: Acute (2) Unstable angina: Status: Acute (3) Systolic heart failure: Status: Acute (4) Coronary artery disease: See above Status: Acute (5) Status post insertion of drug-eluting stent into left anterior descending artery: Status: Acute (6) HTN (hypertension) with goal to be determined: Continue CAYLA inhibitor. Hold metoprolol secondary to bradycardia Status: Acute Additional A&P Information Patient admitted with unstable angina symptoms and underwent coronary angiogram that showed severe proximal LAD stenosis. He underwent successful revascularization with SEBASTIAN x1. Aspirin and Plavix for atleast 1 year High intensity statin therapy Has sinus bradycardia. Will hold off on rate controlling agents for now. Cardiology following and on board Questionable upper GI bleed ?Patient complains of dark stools which are black in color Nursing staff saw stool which was copper light-colored but not pure black. Patient also reports a history of internal hemorrhoids but does not report gross blood per rectum. Hemoglobin has been stable. Hemoglobin has been checked and is stable at this point. He is no longer having black stools. Stool has started to clear up and is now watery brown color.. I will continue patient on sucralfate 1 g 4 times daily and Protonix 40 twice daily oral at this point. He will definitely need follow-up outpatient for possible endoscopy and colonoscopy. His last colonoscopy was 5 years ago. Fecal occult blood is positive. Patient is not actively having melanotic stools therefore I believe this can be done as an outpatient. I will continue to monitor hemoglobin while he is here. Possible carcinoid syndrome Patient's reported episodes of chest and facial and shoulder flushing with defecation and certain meals is definitely concerning. He also reports watery diarrhea most of the time when he has these episodes. He even quit drinking alcohol because that was one of the triggers. He states he has complained of this multiple times but never has had a work-up. Initially he came in with the same complaint and interrupt going for angiogram and his LAD was stented. However his symptoms have not resolved. Patient also gets tachycardic when these episodes occur. I have ordered a 24-hour urine for 5-HIAA. I will also refer him to endocrinology outpatient. 5?HIAA does have a sensitivity of 90% and specificity of 90% as well likely can have false negatives if patient on acetaminophen or has taken certain tryptophan-containing foods. Patient was n.p.o. for the last 2 days and denies having bananas and pineapples. However he does state that every time he has a banana he had a similar episode so he stopped taking it long time ago. In the process of collecting urine patient did get 1 dose of acetaminophen early intervention school psychologist today. We will still continue to go ahead with the test. I will try to discuss with Endo. Fluids: Not indicated at this time Electrolytes replete as needed Nutrition: N.p.o. for now Activity: As tolerated DVT prophylaxis: SCDs. Patient is on aspirin and Plavix we will continue that. I will hold off on Lovenox or heparin for DVT prophylaxis for now. Attestations Medical Necessity Statement*: Plan to discharge home tomorrow with outpatient follow-up. Time Spent in Patient Care: 16 - 35 minutes (>than 50% of time spent in counselling and/or direct pt care on unit) . Coding Level of Care Code Acute Survey Analyst for Edith Mckeon Diagnoses GI bleed K92.2 Unstable angina I20.0 Systolic heart failure I50.20 Coronary artery disease I25.10 Status post insertion of drug-eluting stent into left anterior descending artery Z95.5 HTN (hypertension) with goal to be determined I10
--- NOTE | 2021-06-15 11:53 | PM.TOC ---
Transition of Care Summary Hospital Course: Patient is a 55-year-old male who presented with episodes of chest facial and shoulder flushing with defecation and a burning feeling in his chest. He was admitted for unstable angina and underwent coronary angiogram that showed severe LAD stenosis. He underwent successful revascularization with SEBASTIAN x1. He will need to be on aspirin and Plavix for 1 year for that and high intensity statin therapy. He also had sinus bradycardia so his metoprolol has not been restarted yet. Day after angiogram patient reported having melanotic stools which were black in color. His discharge was held and he was placed on Protonix 40 IV twice daily and sucralfate 1 g 4 times daily. Hemoglobin was monitored and has been stable. Melena has started to clear up and now he has watery brownish stools. In addition I have a suspicion that he might have carcinoid syndrome since his clinical history is consistent with the diagnosis. I have ordered a 24-hour urine for 5?HIAA. Patient will need endocrinology follow-up, gastroenterology follow-up and cardiology follow-up outpatient. I have counseled him on foods that are rich in tryptophan. He is also quit drinking alcohol as that was one of the triggers. He also does not take bananas due to the same reason. I would let him follow-up with endocrinology for diagnosis confirmation. Just for completion I did order a stool culture and C. difficile panel to rule out infection due to his abdominal pain diarrhea. All this was discussed in detail with the patient and he understands. Pending Results: Pending labs and procedures: Pending at discharge Category Date Time Status BUSINESS SYSTEMS ANALYST request for service Routin e Exams 06/13/21 06:00 Taken 5-HIAA 24Hr Urine Routine Lab 06/14/21 18:00 Uncollected Basic Metabolic P valeriano AM LABS Lab 06/16/21 04:00 Ordered Clostridioides Di fficile PCR Stat Lab 06/15/21 08:28 Uncollected Complete Blood Co unt w/Auto AM LABS Lab 06/16/21 04:00 Ordered Stool Culture, Ba cterial [Enteric B acterial Panel by Lab 06/14/21 17:56 Received PCR] Routine Provider Assuming Care: Next clinician assuming care: Chin Venegas
--- NOTE | 2021-06-15 16:09 | PM.PN ---
Subjective Subjective: Interval history: Feeling much better denies any more melena or bright red blood per rectum. Denies chest pain. Medications: Reviewed: Yes Vitals/I&O/Wt Last Vital Signs Temp 98.3 F 06/15/21 11:41 Pulse 56 L 06/15/21 11:41 Resp 12 06/15/21 11:41 BP 119/61 06/15/21 11:41 Pulse Ox 96 06/15/21 11:41 06/15/21 06/15/21 06/15/21 06:59 14:59 22:59 Intake Total 50 / 100 120 / 120 Balance 50 / -203 120 / 120 Physical Exam Narrative: EXAM NARRATIVE: GENERAL: Patient is alert, awake and oriented x3. NECK: No jugular vein distension. HEENT: No cyanosis. No icterus. No pallor. HEART: Regular S1 and S2. No murmur, rub or gallop. LUNGS: Clear to auscultate bilaterally. ABDOMEN: Soft, nontender and nondistended. Positive bowel sounds. No guarding, rebound or tenderness. CENTRAL NERVOUS SYSTEM: Grossly nonfocal. EXTREMITIES: Lower extremities without edema bilaterally. Data : 06/14/21 14:47 06/14/21 03:50 Micro: Microbiology 06/14/21 17:56 Enteric Pathogens (PCR) - Final Stool Routine Collection A&P Assessment and plan (1) Hyperlipidemia: Status: Acute Qualifiers: Hyperlipidemia type: mixed hyperlipidemia Qualified Code(s): E78.2 - Mixed hyperlipidemia (2) Coronary artery disease: Status: Acute (3) HTN (hypertension) with goal to be determined: Status: Acute (4) Unstable angina: Status: Acute (5) Systolic heart failure: Status: Acute (6) GI bleed: Status: Acute Patient admitted with unstable angina symptoms and underwent coronary angiogram that showed severe proximal LAD stenosis. He underwent successful revascularization with SEBASTIAN x1. Aspirin and Plavix for atleast 1 year High intensity statin therapy Has sinus bradycardia. Will hold off on rate controlling agents for now. Thank you for involving us with care of this patient. We will continue to follow. 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
--- NOTE | 2021-06-15 19:13 | PC.NURSE ---
Shift Note Frequent safety and comfort rounds continue. Orders and/or nursing care completed as indicated. Patient monitored for response to intervention and treatment(s). Education provided includes treatment goals and testing. Patient and/or account executive sales representative verbalized understanding. Will continue to monitor.
[2021-06-15] MEDS: temazepam 15 mg Capsule PO (20:32)
[2021-06-16] VITALS (7 sets, daily range): BP systolic 95–120; BP diastolic 64–78; PULSE 48–61; RESP 4–15; TEMP 36.6–37.2; O2SAT 93–96
[2021-06-16 04:51] LABS: Basophils # 0.1 10^3/uL (0.0-0.1); Basophils % 0.8 %; Eosinophils # 0.2 10^3/uL (0.0-0.8); Eosinophils % 2.4 %; Hematocrit 44.2 % (42.0-52.0); Hemoglobin 15.1 g/dL (11.7-16.6); Lymphocytes % 22.2 %; Mean Corpuscular HGB Conc 34.2 g/dL (30.0-36.0); Mean Corpuscular Hemoglobin 31.7 pg (28.0-34.0); Mean Corpuscular Volume 92.9 fl (80-94); Monocytes # 0.7 10^3/uL (0.2-0.9); Monocytes % 7.8 %; Neutrophils # 6.05 10^3/uL (1.8-7.7); Neutrophils % 66.5 %; Nucleated Red Blood Cells % 0 %; Platelet Count 212 10^3/cmm (130-400); Red Blood Count 4.76 10^6/uL (4.1-5.3); Red Cell Distribution Width 12.1 % (12.1-15.1); White Blood Count 9.1 10^3/uL (4.0-10.0)
[2021-06-16 05:10] LABS: Anion Gap 12.9 (5-19); Blood Urea Nitrogen 17 mg/dL (6-20); Calcium 8.6 mg/dL (8.5-10.5); Carbon Dioxide 26 mmol/L (22-29); Chloride 105 mmol/L (98-107); Glomerular Filtration Rate 138.9 mL/min (90-130); Glucose 82 mg/dL (65-115); Osmolality Calculated 291 mOsm/kg (285-295); Potassium 3.9 mmol/L (3.5-5.1); Sodium 140 mmol/L (136-145)
[2021-06-16] MEDS: ezetimibe 10 mg Tablet PO (06:15)
[2021-06-16] MEDS: lisinopril 10 mg Tablet PO (06:15)
[2021-06-16] MEDS: sucralfate 1 gm Tablet PO (06:15)
[2021-06-16] MEDS: pantoprazole 40 mg SDV IVP (06:15)
[2021-06-16] MEDS: clopidogrel 75 mg Tablet PO (06:15)
[2021-06-16] MEDS: aspirin 81 mg EC Tablet PO (06:16)
[2021-06-16] MEDS: atorvastatin 40 mg Tablet 20 MG PO (06:16)
--- NOTE | 2021-06-16 06:37 | PC.NURSE ---
Shift Note Frequent safety and comfort rounds continue. Orders and/or nursing care completed as indicated. Patient monitored for response to intervention and treatment(s). Education provided includes plan of care. Patient and/or communications representative verbalized understanding. Will continue to monitor.
--- NOTE | 2021-06-16 08:45 | P.PN_ITS ---
Subjective Subjective: Interval history: Patient is feeling better. No more chest pain Vitals/I&O/Wt Last Vital Signs Temp 98.9 F 06/16/21 08:28 Pulse 59 L 06/16/21 08:28 Resp 13 06/16/21 08:28 BP 120/78 06/16/21 08:28 Pulse Ox 96 06/16/21 08:28 06/15/21 06/16/21 06/16/21 22:59 06:59 14:59 Intake Total 1110 / 1230 Output Total 800 / 800 Balance 310 / 430 Physical Exam Narrative: EXAM NARRATIVE: GENERAL: Patient is alert, awake and oriented x3. NECK: No jugular vein distension. HEENT: No cyanosis. No icterus. No pallor. HEART: Regular S1 and S2. No murmur, rub or gallop. LUNGS: Clear to auscultate bilaterally. ABDOMEN: Soft, nontender and nondistended. Positive bowel sounds. No guarding, rebound or tenderness. CENTRAL NERVOUS SYSTEM: Grossly nonfocal. EXTREMITIES: Lower extremities without edema bilaterally. Data : 06/16/21 04:13 06/16/21 04:13 Micro: Microbiology 06/15/21 14:30 C.difficile Toxin B Gene (PCR) - Final Stool Routine Collection 06/14/21 17:56 Enteric Pathogens (PCR) - Final Stool Routine Collection A&P Assessment and plan (1) Hyperlipidemia: Qualifiers: Hyperlipidemia type: mixed hyperlipidemia Qualified Code(s): E78.2 - Mixed hyperlipidemia (2) Coronary artery disease: Status: Acute (3) HTN (hypertension) with goal to be determined: (4) Unstable angina: Status: Resolved (5) Systolic heart failure: Patient admitted with unstable angina symptoms and underwent coronary angiogram that showed severe proximal LAD stenosis. He underwent successful revascularization with SEBASTIAN x1. Aspirin and Plavix for atleast 1 year High intensity statin therapy Abdominal symptoms have improved Thank you for involving us with care of this patient. Patient is stable to be discharged from cardiology standpoint. Please call with questions Attestations Medical Necessity Statement*: Care expected to cross 2 midnights. Coding Level of Care Code Acute Director Of Industrial Relations for [facility] Fwd Diagnoses Hyperlipidemia E78.2 Hyperlipidemia type: mixed hyperlipidemia Coronary artery disease I25.10 HTN (hypertension) with goal to be determined I10 Unstable angina I20.0 Systolic heart failure I50.20
[2021-06-16 09:43] LABS: Urine Creatinine 174 mg/dL (39-259)
[2021-06-16 09:44] LABS: Total Volume Urine 800 ml
--- NOTE | 2021-06-16 11:10 | PM.DCS ---
Discharge Providers Date of Admission: 06/14/21 18:26 Date of Discharge: June 16, 2021 Attending Provider at Admission: Curt Hernadze MD Attending Provider at Discharge: Chin Venegas MD Primary Care Provider: Ish Johnson MD Diagnoses at Discharge Discharge Diagnosis (1) Hyperlipidemia: Status: Acute Permanent problem details: Continue statin Qualifiers: Hyperlipidemia type: mixed hyperlipidemia Qualified Code(s): E78.2 - Mixed hyperlipidemia (2) Coronary artery disease: Status: Acute Permanent problem details: Stable from a coronary disease perspective. Continue current regimen. Continue aspirin statin and clopidogrel. (3) HTN (hypertension) with goal to be determined: Status: Acute Permanent problem details: Vital well-controlled continue medicine. (4) Unstable angina: Status: Acute (5) Systolic heart failure: Status: Acute Permanent problem details: Well compensated. (6) GI bleed: Status: Acute Permanent problem details: No more GI bleed continue as per medicine Reason for Visit Reason for Visit: CP Hospital Course Hospital Course Patient is a 55-year-old male who presented with episodes of chest, facial and shoulder flushing with defecation and a burning feeling in his chest. He was admitted for unstable angina and underwent coronary angiogram that showed severe LAD stenosis. He underwent successful revascularization with SBEASTIAN x1. He will need to be on aspirin and Plavix for 1 year for that and high intensity statin therapy. He also had sinus bradycardia so his metoprolol was not restarted . Day after angiogram patient reported having melanotic stools which were black in color. His discharge was held and he was placed on Protonix 40 IV twice daily and sucralfate 1 g 4 times daily. Hemoglobin was monitored and has been stable. Melena has started to clear up and now he has watery brownish stools. In addition I have a suspicion that he might have carcinoid syndrome since his clinical history is consistent with the diagnosis. I have ordered a 24-hour urine for 5?HIAA. Patient will need endocrinology follow-up,and cardiology follow-up outpatient. I have counseled him on foods that are rich in tryptophan. He is also quit drinking alcohol as that was one of the triggers. He also does not take bananas due to the same reason. I would let him follow-up with endocrinology for diagnosis confirmation. Just for completion I did order a stool culture and C. difficile panel to rule out infection due to his abdominal pain and diarrhea, which were unremarkable. All this was discussed in detail with the patient and he understands. Supervisor Harvesting Dr. Castillo was notified about this case who agreed with the work-up. 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 Routin e Exams 06/13/21 06:00 Taken 5-HIAA 24Hr Urine Routine Lab 06/14/21 18:00 Received Metanephrines, Fr ac LC/MS/MS Stat Lab 06/16/21 10:57 Ordered Miscellaneous Tati t Stat Lab 06/15/21 18:00 Received Labs from last 24 hours 06/16/21 06/16/21 06/15/21 04:13 04:13 18:00 WBC 9.1 RBC 4.76 Hgb 15.1 Hct 44.2 MCV 92.9 MCH 31.7 MCHC 34.2 RDW 12.1 Plt Count 212 MPV 11.0 H Neut % (Auto) 66.5 Lymph % (Auto) 22.2 Harnett % (Auto) 7.8 Eos % (Auto) 2.4 Baso % (Auto) 0.8 Neut # (Auto) 6.05 Lymph # (Auto) 2.0 Harnett # (Auto) 0.7 Eos # (Auto) 0.2 Baso # (Auto) 0.1 Nucleated RBC % (a uto) 0 Nucleated RBCs # 0.0 Sodium 140 Potassium 3.9 Chloride 105 Carbon Dioxide 26 Anion Gap 12.9 BUN 17 Creatinine 0.6 L GFR Calculation 138.9 H Glucose 82 Calculated Osmolal ity 291 Calcium 8.6 Urine Total Volume 800 Ur 24 Hour Volume Urine Creatinine 174 Ur Creatinine 24 H our 1392.0 Urine 5-HIAA 24 Ho ur Misc Test Referenc e 06/15/21 06/15/21 06/15/21 18:00 18:00 18:00 WBC RBC Hgb Hct MCV MCH MCHC RDW Plt Count MPV Neut % (Auto) Lymph % (Auto) Harnett % (Auto) Eos % (Auto) Baso % (Auto) Neut # (Auto) Lymph # (Auto) Harnett # (Auto) Eos # (Auto) Baso # (Auto) Nucleated RBC % (a uto) Nucleated RBCs # Sodium Potassium Chloride Carbon Dioxide Anion Gap BUN Creatinine GFR Calculation Glucose Calculated Osmolal ity Calcium Urine Total Volume Ur 24 Hour Volume Pending Urine Creatinine Ur Creatinine 24 H our Urine 5-HIAA 24 Ho ur Pending Misc Test Referenc e Cancelled Pending Vitals: Last Vital Signs Temp 98.9 F 06/16/21 08:28 Pulse 59 L 06/16/21 08:28 Resp 13 06/16/21 08:28 BP 120/78 06/16/21 08:28 Pulse Ox 96 06/16/21 08:28 Discharge Plan Discharge Patient Disposition: Home Condition: Stable Prescriptions: New pantoprazole 40 mg tablet,delayed release (DR/EC) 40 mg PO DAILY 56 Days RF: 3 loperamide 2 mg tablet 1 mg PO Q6H PRN (Reason: loose stool) 5 Days Qty: 5 RF: 0 Continued nitroglycerin 0.4 mg tablet, sublingual 0.4 mg SUBLINGUAL Q5M PRN (Reason: chest pain) Qty: 30 RF: 2 All [employer] Greens See Rx Instructions .ROUTE .COMPLEX RF: 0 Cesilia Red Powder See Rx Instructions .ROUTE .COMPLEX RF: 0 tramadol 50 mg tablet 50 mg PO BID PRN (Reason: Pain) RF: 0 Metamucil 3.4 gram/5.4 gram Powder 1 tbsp PO DAILY RF: 0 lisinopril 10 mg tablet 10 mg PO QAM RF: 0 aspirin 81 mg Tablet,Delayed Release (Dr/Ec) 81 mg PO QAM 30 Days Qty: 60 RF: 3 Changed atorvastatin 20 mg tablet 40 mg PO QAM 30 Days Qty: 0 RF: 0 clopidogrel 75 mg tablet 75 mg PO QAM 30 Days Qty: 90 RF: 4 Discontinued omeprazole 20 mg Tablet,Delayed Release (Dr/Ec) 20 mg PO DAILY PRN (Reason: Acid Reflux) RF: 0 ezetimibe 10 mg tablet 10 mg PO QAM RF: 0 metoprolol tartrate 25 mg tablet 12.5 mg PO BID RF: 0 Discharge Orders: Discharge Order (Routine); Ordered 06/16/21 Ordered By: Chin Venegas Referrals: Arvind Morgan M.D [Physician] - 6 Weeks (You have a follow up appointment with Dr. Morgan on Wednesday, July 28, at 3:30pm. If you have any question or concerns please call the office. ) Dixon Castillo MD [Physician] - 4-7 days (You will see Dr. Castillo, who is an Endocrinlologist to rule out Carcinoid Syndrome on Wednesday, June 24, at 10:45am. If you have any questions or concerns please call the office. ) Patient Instructions: Loperamide (By mouth), Pantoprazole (By mouth), Coronary Angioplasty (DC), Opioid Safety, Post Angiogram Home Care Instructions Discharge Attestations Time Spent in Discharge Care*: less than 30 min Status at Discharge: Cognitive status at discharge: cognitively intact, Behavioral status at discharge: cooperative, Quality Metrics Clinical Quality Measures During this hospital stay, did patient experience: None Coding Level of Care Code Acute Chg FW DC note Diagnoses Hyperlipidemia E78.2 Hyperlipidemia type: mixed hyperlipidemia Coronary artery disease I25.10 HTN (hypertension) with goal to be determined I10 Unstable angina I20.0 Systolic heart failure I50.20 GI bleed K92.2
--- NOTE | 2021-06-16 12:53 | PC.NURSE ---
pt education provided, no questions or concerns. Pt IV removed, pt escorted to private vehicle.
--- NOTE | 2021-06-18 08:39 | PC.SOCIAL ---
discharge follow up call made. spoke with patient. patient reports some muscle soreness but denies any chest pain or sob. patient hasn't gotten his pantoprazole filled, but will be soon. patient has understanding of changed medications and discontinued medications. discussed follow up appointment dates and times with patient, he is aware of appointments. patient denies any questions or concerns.
[2021-06-20 12:33] LABS: Metanephrine Total Free 116 pg/mL (<=205)
[2021-06-20 18:58] LABS: 24 Hour Urine Volume 800 mL; 5-HIAA, 24 Hour Urine 6.4 mg/24 h (<=6.0)
== END 2021-06-16 12:30 | disposition home or self-care (01) | DRG 247 ==
LOC: ER 10:16 → CSU 12:30
PROVIDERS: Internal Medicine; Admitting Provider Internal Medicine; Emergency Provider Family Medicine; PCP Family Medicine; Visit Provider Internal Medicine
PROC: 027034Z Dilation of Coronary Artery, One Artery with Drug-eluting Intraluminal Device, Percutaneous Approach (ICD-10-PCS; principal; 2021-06-13 06:00)
PROC: 027034Z Dilation of Coronary Artery, One Artery with Drug-eluting Intraluminal Device, Percutaneous Approach (ICD-10-PCS; 2021-06-13 06:00)
DX: I25.110 Atherosclerotic heart disease of native coronary artery with unstable angina pectoris (principal); I50.22 Chronic systolic (congestive) heart failure; K92.1 Melena; I25.10 Atherosclerotic heart disease of native coronary artery without angina pectoris; Z95.5 Presence of coronary angioplasty implant and graft; Z82.49 Family history of ischemic heart disease and other diseases of the circulatory system; E78.2 Mixed hyperlipidemia; I11.0 Hypertensive heart disease with heart failure; Z87.891 Personal history of nicotine dependence; K86.9 Disease of pancreas, unspecified; K64.8 Other hemorrhoids; Z79.82 Long term (current) use of aspirin; F10.21 Alcohol dependence, in remission
CPT/HCPCS: 36415; 71045; 74174; 80048; 80053; 82274; 82570; 83497; 83735; 83835; 84443; 84484; 85014; 85018; 85025; 85347; 87493; 87506; 93005; 93452; 96360; 96361; 96372; 99291; C1725; C1769; C1874; C1887; C1894; C9113; C9600; G0378; J0153; J1644; J1650; J2250; J2405; J3010; J3246; J3490; J7030; Q0163; Q9967

== ENCOUNTER → 2021-06-24 10:44 | Outpatient (BNVA) | payer BC, SELFPAY | PROVIDERS: PCP Family Medicine; Referring Provider Internal Medicine; Visit Provider Internal Medicine | DX: K86.89 Other specified diseases of pancreas (principal); I10 Essential (primary) hypertension; I25.10 Atherosclerotic heart disease of native coronary artery without angina pectoris; R19.7 Diarrhea, unspecified; F17.210 Nicotine dependence, cigarettes, uncomplicated | CPT/HCPCS: 99204 ==

== ENCOUNTER 2021-07-28 09:58 | Outpatient (CLI) | payer BC, SELFPAY ==
[2021-07-28] MEDS: iohexol 300 mg/mL 100 mL Btl IV (11:28)
--- NOTE | 2021-07-28 11:30 | CT_ITS ---
WS: [id number] Exam: CT abdomen pelvis w con* [id number] Date/Time of Exam: 07/28/2021 11:11 AM Reason For Exam: To see if it is a mass DLP: 1515.[address] scans at [facility] use at least one of these dose optimization techniques: automated e xposure control; mA and/or kV adjustment per patient size (includes targeted exams where dose is matc hed to clinical indication); or iterative reconstruction. Compared to CTA of the abdomen and pelvis performed 06/12/2021 Lower lung zones are clear. The liver, spleen, and stomach appear normal. There is prominence of the pancreatic head and uncinate process of the pancreas essentially unchanged. The abdominal aorta is no rmal in caliber. The portal vein and IVC are patent. There is colonic diverticulosis but no sign of a cute diverticulitis. Small bowel loops are normal in caliber. Normal kidneys and adrenal glands. Subc entimeter left renal cyst is noted. No lymphadenopathy or free air. No sign of acute appendix. Marked diverticulosis seen in the sigmoid region. No pelvic mass or lymphadenopathy. Intact urinary bladder . Osseous structures are intact. Moderate degenerative change and spondylosis of the lumbar spine. Mi ld spinal canal stenosis at L1-2, L2-3 and L3-4. This is secondary to posterior osteophytes. CT/CT abdomen pelvis w con* [id number] IMPRESSION: 1. Continued prominence of the pancreatic head and uncinate process of the panc reas. A clearly defined mass is not definitely seen. Further workup with MRI wi th and without contrast would be suggested. 2. Colonic diverticulosis but no sign of acute diverticulitis. 3. No lymphadenopathy or ascites in the abdomen or pelvis.
== END 2021-07-28 09:59 | disposition home or self-care (01) ==
PROVIDERS: PCP Family Medicine; Visit Provider Internal Medicine
DX: K86.89 Other specified diseases of pancreas (principal); K57.90 Diverticulosis of intestine, part unspecified, without perforation or abscess without bleeding
CPT/HCPCS: 74177; Q9967

== ENCOUNTER 2021-08-13 09:09 | Outpatient (CLI) | payer BC, SELFPAY ==
--- NOTE | 2021-08-13 09:17 | MR_ITS ---
WS: [id number] INDICATION: Pancreatitis. TECHNIQUE: MR of the abdomen without gadolinium enhancement. Coronal 2-D fiesta, axial 2-D fiesta, ax ial T2 dual echo axial T1 and coronal T2 FINDINGS: Comparison CT July 2021 Some images degraded by motion artifact. Pancreatic head is somewhat tortuous and prominent unchanged from previous. Large prominent traversing superior mesenteric vein corresponds to some of the promin ence seen on the prior CT. Closely opposed adjacent traversing duodenum. Pancreatic head appears nor mal. No pancreatic duct dilatation. No pancreatic mass. Normal-appearing common bile duct measuring 5 .8 mm. No intrahepatic biliary ductal dilatation. Normal gallbladder. Adrenal glands are normal. No hydronep hrosis in either kidney. Normal caliber abdominal aorta. Small bilateral renal cysts. No other signif icant findings. MR/MR abdomen wo con [id number] IMPRESSION: 1. No evidence of pancreatic head mass or lesion. 2. Normal pancreatic duct. 3. No other significant findings.
== END 2021-08-13 09:10 | disposition home or self-care (01) ==
LOC: RADSHAW 09:12
PROVIDERS: PCP Family Medicine; Visit Provider Internal Medicine
DX: K86.89 Other specified diseases of pancreas (principal)
CPT/HCPCS: 74181

== ENCOUNTER 2021-09-29 09:24 | Outpatient (CLI) | payer BC, SELFPAY ==
--- NOTE | 2021-09-29 09:36 | NM_ITS ---
WS: [id number] NUCLEAR MEDICINE HIDA SCAN WITH GALLBLADDER EJECTION FRACTION HISTORY: GALLBLADDER SLUDGE COMPARISON: Gallbladder ultrasound 08/20/2021 TECHNIQUE: The patient was intravenously injected with 7.8 mCi of TC99m Mebrofenin. Immediate imaging over the right upper quadrant was followed by 5 minute image and additional images for a total of 60 minutes. Mildly heterogeneous appearance of the liver. Activity identified in the gallbladder at 30 minutes and minimally distended by 60 minutes. Activity in the proximal small bowel was seen poorly visualized by 60 minutes. Good washout of the ra diotracer from the liver by 60 minutes. The patient then drank 8 ounces of Ensure Plus. Ejection fraction at 60 minutes was 35%. Normal GB ej ection fraction is 35-75%. Post fatty meal symptoms: Abdominal pain. NM/NM hepatobiliary w phar* [id number] IMPRESSION: 1. Only limited distention of the gallbladder and very low normal gallbladder ejection fracture. Consider chronic cholecystitis as a possible etiology if pat ient is not acutely symptomatic. 2. There is no high-grade common bile duct obstruction.
== END 2021-09-29 09:25 | disposition home or self-care (01) ==
PROVIDERS: PCP Family Medicine; Visit Provider Family Medicine
DX: K82.8 Other specified diseases of gallbladder (principal)
CPT/HCPCS: 78227; A9537

== ENCOUNTER 2022-09-21 08:44 | Outpatient (CLI) | payer BC, SELFPAY ==
--- NOTE | 2022-09-21 09:30 | USCV_ITS ---
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 Normal resting JHOANA and TBI on the right side suggesting no significant arterial obstruction Dr Kaylan Rao MD FAC (Electronically Signed) Final Date: 21 September 2022 17:37 S
== END 2022-09-21 08:45 | disposition home or self-care (01) ==
LOC: RAD 08:45
PROVIDERS: PCP Family Medicine; Visit Provider Internal Medicine
DX: M79.604 Pain in right leg (principal); M79.605 Pain in left leg; I73.9 Peripheral vascular disease, unspecified
CPT/HCPCS: 93922